=== PATIENT | male | born 1935 | race Caucasian/White ===

== ENCOUNTER 2018-01-28 23:31 | Observation (INO) | payer OTHER, MEDICAID ==
[~2018-01-28] VITALS: Ht 167.6 cm; Wt 110.0 kg
[~2018-01-28 23:31] MED LIST: ASPI-183 PO; CALTCHW5 PO; DIPH25CA PO; DOCU50CA5; FURO40TA PO; KLOR10TA PO; METO1TAB42 PO; MULTTAB67 PO; NORC5TAB PO; OMEGCAP PO; OMEP20TA93 PO; PENT400T PO; SIME1CAP14 PO; SIME1CAP17 PO; SUCR1TAB PO; TAMS0.4C4 PO; [UNRECOGNIZED DRUG - REMARK]
[2018-01-29] VITALS (7 sets, daily range): BP systolic 99–125; BP diastolic 52–62; PULSE 20–89; RESP 18–22; TEMP 97.5–98.7; O2SAT 90–96
--- NOTE | 2018-01-29 00:10 | PD ---
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 According to EMS his takes care of his ADLs and was wiping him and found that was red on the toilet paper. There was no clots patient has had no abdomen pain no history of hemorrhoids no history of GI bleed. Patient has no abdominal pain patient is demented and a poor historian so HPI and ROS is incomplete. He is not hypotensive he is not tachycardic. Initial rolling him to do a rectal exam he starts to lose what looks to be floccular and red fluid that is slowly coming out of his rectum and is very guaiac positive and gross blood it is not clots and his next what looks possibly a mucous substance. PFSH Past Medical History Arthritis: Yes Cancer: Yes (PROSTATE CA. WITH SEEDS) Cardiovascular Problems: Yes ([place]) Cerebrovascular Accident: Yes (RIGHT SIDE DEFICITS) Endocrine: No Gastrointestinal Disorders: Yes (REFLUX) Hypertension: Yes Immune Disorder: No Implanted Vascular Access Dvce: Yes Musculoskeletal: Yes (LEFT HIP REPLACEMENT) Neurologic: No Psychiatric: No Reproductive: No Respiratory: Yes (COPD) Radiation Therapy: Yes Past Surgical History Cardiac Surgery: Yes (CARDIAC CATH, BYPASS X 3) Joint Replacement: Yes (LEFT HIP) Pacemaker: No Other Surgery: Yes Social History Alcohol Use: No Tobacco Use: Yes (3 PPD) Substance Use: No Allergies-Medications (Allergen,Severity, Reaction): Coded Allergies: omeprazole (Verified Allergy, Severe, HIVES, 01/29/18) No Known Allergies (Unverified Allergy, Unknown, 09/03/17) Reported Meds & Prescriptions Reported Meds & Active Scripts Active Ecotrin Low Strength (Aspirin) 81 Mg Tabdr 81 Mg PO DAILY Anusol-Hc Supp (Hydrocortisone Supp) 25 Mg Supp 25 Mg RECTAL BID 14 Days [place] (Hydrocodone-Acetaminophen) 5 Mg-325 Mg Tab 1 Tab PO Q6H PRN Reported Tamsulosin (Tamsulosin HCl) 0.4 Mg Cap 0.4 Mg PO HS Sucralfate 1 Gram Tab 1 Gm PO HS on empty stomach Simethicone 125 Mg Cap 80 Mg PO BID PRN Klor-Con 10 (Potassium Chloride) 10 Meq Tab 10 Meq PO DAILY Pentoxifylline ER (Pentoxifylline) 400 Mg Tab 400 Mg PO DAILY Omeprazole 20 Mg Tab 20 Mg PO DAILY [place]-3 Fish Oil/Vitamin (Fish Oil-Cholecalciferol) 1,000-1,000 Mg Cap 1 Cap PO DAILY Multiple Vitamin 1 Tab 1 Tab PO DAILY Stool Softener (Docusate Sodium) 50 Mg Capsule 1 Cap DAILY Metoprolol Succinate ER 24 HR (Metoprolol Succinate) 25 Mg Tab 12.5 Mg PO HS Metoprolol Succinate ER 24 HR (Metoprolol Succinate) 25 Mg Tab 25 Mg PO DAILY Furosemide 40 Mg Tab 40 Mg PO DAILY Diphenhydramine (Diphenhydramine HCl) 25 Mg Cap 25 Mg PO HS Caltrate 600+D Chew (Calcium Carbonate-Vitamin D Chew) 600-400 Mg-Unit Chew 1 Tab PO DAILY [Unk Shot For Ca] DIRECTED Physical Exam Narrative GENERAL: Patient is awake but is a poor historian he seems to have a communication issue answering in simple 1 or 2 word answers SKIN: Warm and dry. HEAD: Atraumatic. Normocephalic. EYES: Pupils equal and round. No scleral icterus. No injection or drainage. ENT: No nasal bleeding or discharge. Mucous membranes pink and moist. NECK: Trachea midline. No JVD. CARDIOVASCULAR: Regular rate and rhythm. RESPIRATORY: No accessory muscle use. Clear to auscultation. Breath sounds equal bilaterally. GASTROINTESTINAL: Abdomen soft, non-tender, nondistended. Hepatic and splenic margins not palpable. Rectal exam he has fluid that is almost serous like with red coloration and is very guaiac positive on the occult card MUSCULOSKELETAL: Extremities without clubbing, cyanosis, or edema. No obvious deformities. NEUROLOGICAL: Awake and alert. No obvious cranial nerve deficits. Motor grossly within normal limits. Five out of 5 muscle strength in the arms and legs. Normal speech. PSYCHIATRIC: Patient is post CVA with mild aphasia he is answering and correct but 1 or 2 word answers to my questions Data Data Last Documented VS Orders Orders Complete Blood Count With Diff (01/29/18 00:11) Comprehensive Metabolic Panel (01/29/18 00:11) Lipase (01/29/18 00:11) Type And Screen (01/29/18 00:11) Ecg Monitoring (01/29/18 00:11) Iv Access Insert/Monitor (01/29/18 00:11) Oximetry (01/29/18 00:11) Pantoprazole Inj (Protonix Inj) (01/29/18 00:15) Sodium Chloride 0.9% Flush (Ns Flush) (01/29/18 00:15) Famotidine Inj (Pepcid Inj) (01/29/18 00:15) Chest, Single Ap (01/29/18 ) (Hub Use Only)Inp Phy Cons/Ref (01/29/18 ) Ct Abd/Pel W/O Iv Contrast (01/29/18 ) Lorazepam Inj (Ativan Inj) (01/29/18 03:15) Admit Order (Ed Use Only) (01/29/18 04:24) Place In Observation (01/29/18 ) Vital Signs (Adult) HERMES.QSHIFT (01/29/18 04:48) Activity Bed Rest (01/29/18 04:48) Intake + Output HERMES.QSHIFT (01/29/18 04:48) Diet Npo (01/29/18 Breakfast) Sodium Chloride 0.9% Flush (Ns Flush) (01/29/18 05:00) Sodium Chloride 0.9% Flush (Ns Flush) (01/29/18 09:00) Ondansetron Inj (Zofran Inj) (01/29/18 05:00) Hgb & Hct (01/29/18 18:20) Consult Gastroenterology (01/29/18 ) Scd Bilateral/Knee High HERMES.BID (01/29/18 04:48) Waqar Bilateral/Knee High HERMES.QSHIFT (01/29/18 04:48) Albuterol-Ipratropium Neb (Duoneb Neb) (01/29/18 05:00) Fuel Injection Servicer / Telemetry HERMES.Q8H (01/29/18 04:48) Urinalysis - C+S If Indicated (01/29/18 04:52) Labs Laboratory Tests Test 01/29/18 00:20 White Blood Count 8.2 TH/MM3 Red Blood Count 4.17 MIL/MM3 Hemoglobin 12.2 GM/DL Hematocrit 38.0 % Mean Corpuscular Volume 91.0 FL Mean Corpuscular Hemoglobin 29.1 PG Mean Corpuscular Hemoglobin Concent 32.0 % Red Cell Distribution Width 15.2 % Platelet Count 97 TH/MM3 Mean Platelet Volume 10.0 FL Neutrophils (%) (Auto) 66.9 % Lymphocytes (%) (Auto) 21.4 % Monocytes (%) (Auto) 8.4 % Eosinophils (%) (Auto) 2.8 % Basophils (%) (Auto) 0.5 % Neutrophils # (Auto) 5.5 TH/MM3 Lymphocytes # (Auto) 1.7 TH/MM3 Monocytes # (Auto) 0.7 TH/MM3 Eosinophils # (Auto) 0.2 TH/MM3 Basophils # (Auto) 0.0 TH/MM3 CBC Comment AUTO DIFF Differential Comment AUTO DIFF CONFIRMED Platelet Estimate LOW Platelet Morphology Comment ENLARGED Blood Urea Nitrogen 30 MG/DL Creatinine 0.72 MG/DL Random Glucose 104 MG/DL Total Protein 5.8 GM/DL Albumin 2.7 GM/DL Calcium Level 9.1 MG/DL Alkaline Phosphatase 68 U/L Aspartate Amino Transf (AST/SGOT) 16 U/L Alanine Aminotransferase (ALT/SGPT) 14 U/L Total Bilirubin 0.5 MG/DL Sodium Level 145 MEQ/L Potassium Level 4.1 MEQ/L Chloride Level 104 MEQ/L Carbon Dioxide Level 36.1 MEQ/L Anion Gap 5 MEQ/L Estimat Glomerular Filtration Rate 104 ML/MIN Lipase 72 U/L MDM Medical Decision Making Medical Screen Exam Complete: Yes Emergency Medical Condition: Yes Differential Diagnosis rectal bleeding from hemorrhoids vs AV malformation vs colitis , UC or crohns ,other Narrative Course rectal exam shows mucouslike bloody d/c and tenderness then CT shows what appears to be significant rectal sigmoid thickening , possible protitis with sloughing of mucous layer of rectum , ADmit for GI consult eval possible colonscopy Diagnosis Primary Impression: Rectal bleed Additional Impression: Proctitis Admitting Information Admitting Physician Requests: Admit Scripts Aspirin DR (Ecotrin Low Strength) 81 Mg Tabdr 81 MG PO DAILY for Prevent Blood Clot, #30 TAB 0 Refills Prov: Maria Alejandra Koroma PA-C 01/29/18 Hydrocortisone Supp (Anusol-Hc Supp) 25 Mg Supp 25 MG RECTAL BID for rectal bleeding for 14 Days, #28 APPLIC Prov: Maria Alejandra Koroma PA-C 01/29/18 Johnson Dumont MD Jan 29, 2018 00:10
[2018-01-29] MEDS ORDERED: SODIUM CHLORIDE 0.9% FLUSH 10 ML FLUSH IVF PRN (00:15)
[2018-01-29] MEDS ORDERED: FAMOTIDINE 20 MG/2 ML VIAL IV PUSH ONE (00:15)
[2018-01-29] MEDS ORDERED: PANTOPRAZOLE SODIUM 40 MG VIAL IVP ONE (00:15)
[2018-01-29 00:47] LABS: AUTOMATED NEUTROPHIL # 5.5 TH/MM3 (1.8-7.7); BASOPHIL % 0.5 % (0.0-2.0); EOSINOPHIL # 0.2 TH/MM3 (0-0.4); EOSINOPHIL % 2.8 % (0.0-4.0); HEMOGLOBIN 12.2 GM/DL (13.0-17.0); LYMPH % 21.4 % (9.0-44.0); LYMPHOCYTE # 1.7 TH/MM3 (1.0-4.8); MEAN CORPUSCULAR HEMOGLOBIN 29.1 PG (27.0-34.0); MONO % 8.4 % (0.0-8.0); MONOCYTE # 0.7 TH/MM3 (0-0.9); NEUT % 66.9 % (16.0-70.0); PLATELET COUNT 97 TH/MM3 (150-450); RED BLOOD COUNT 4.17 MIL/MM3 (4.50-5.90); RED CELL DISTRIBUTION WIDTH 15.2 % (11.6-17.2); WHITE BLOOD COUNT 8.2 TH/MM3 (4.0-11.0)
[2018-01-29 01:10] LABS: ALBUMIN 2.7 GM/DL (3.4-5.0); ALT (GPT) 14 U/L (12-78); AST (GOT) 16 U/L (15-37); BICARBONATE 36.1 MEQ/L (21.0-32.0); BLOOD UREA NITROGEN 30 MG/DL (7-18); CALCIUM 9.1 MG/DL (8.5-10.1); CHLORIDE 104 MEQ/L (98-107); CREATININE 0.72 MG/DL (0.60-1.30); GLOMERULAR FILTRATION RATE 104 ML/MIN (>89); GLUCOSE,RANDOM 104 MG/DL (74-106); SODIUM (NA) 145 MEQ/L (136-145)
[2018-01-29 01:12] LABS: ALKALINE PHOSPHATASE 68 U/L (45-117); TOTAL BILIRUBIN ADULT 0.5 MG/DL (0.2-1.0); TOTAL PROTEIN 5.8 GM/DL (6.4-8.2)
--- NOTE | 2018-01-29 01:13 | RADRPT ---
EXAM DATE/TIME: 01/29/2018 00:36 [facility] COMPARISON: CHEST SINGLE AP, September 03, 2017, 15:36. INDICATIONS : Short of breath. Vomiting. MEDICAL HISTORY : Myocardial infarction. Carcinoma, prostatic. SURGICAL HISTORY : CABG. Left total hip replacment. ENCOUNTER: Initial ACUITY: 1 day PAIN SCORE: 0/10 LOCATION: Bilateral chest FINDINGS: A single view of the chest demonstrates the lungs to be symmetrically aerated without evidence of mas s, infiltrate or effusion. The cardiomediastinal contours are unremarkable. Previous sternotomy. Mul tiple left rib fractures. CONCLUSION: No acute disease Bam Tanner MD on January 29, 2018 at 1:10 Board Certified Radiologist. This report was verified electronically.
[2018-01-29] MEDS ORDERED: LORazepam 2 MG/ML VIAL IV PUSH ONE (03:15)
--- NOTE | 2018-01-29 03:40 | RADRPT ---
EXAM DATE/TIME: 01/29/2018 03:21 [facility] COMPARISON: No previous studies available for comparison. INDICATIONS : Rectal bleeding. ORAL CONTRAST: No oral contrast ingested. RADIATION DOSE: 17.4 CTDIvol (mGy) MEDICAL HISTORY : Cardiovascular disease. Carcinoma, prostate. Hypertension. SURGICAL HISTORY : None. ENCOUNTER: Initial ACUITY: 1 day PAIN SCALE: 0/10 LOCATION: Bilateral abdomen TECHNIQUE: Volumetric scanning of the abdomen and pelvis was performed. Using automated exposure control and ad justment of the mA and/or kV according to patient size, radiation dose was kept as low as reasonably achievable to obtain optimal diagnostic quality images. DICOM format image data is available electro nically for review and comparison. FINDINGS: LOWER LUNGS: The visualized lower lungs are clear. LIVER: Homogeneous density without lesion. There is no dilation of the biliary tree. Gallbladder surgically absent.. SPLEEN: Normal size without lesion. PANCREAS: Within normal limits. KIDNEYS: Left renal cysts. Nonobstructing stone in the lower pole collecting system of the left kidney. ADRENAL GLANDS: Within normal limits. VASCULAR: There is no aortic aneurysm. BOWEL/MESENTERY: Question wall thickening involving the rectosigmoid. Bowel is otherwise unremarkable. ABDOMINAL WALL: Within normal limits. RETROPERITONEUM: There is no lymphadenopathy. BLADDER: Small diverticular outpouching involving the anterior dome region. REPRODUCTIVE: Prostate fiducials or seen implants INGUINAL: There is no lymphadenopathy or hernia. MUSCULOSKELETAL: Left total hip arthroplasty. Degenerative changes in the spine. CONCLUSION: Question mild wall thickening involving rectosigmoid. Left renal cysts and nonobstructing stone. Distended urinary bladder with dome diverticulum Bam Tanner MD on January 29, 2018 at 3:30 Board Certified Radiologist. This report was verified electronically.
[2018-01-29] MEDS ORDERED: RESP: ALBUTEROL 2.5 MG/IPRATROPIUM 0.5 MG NEB (PRN) NEB ×2 (05:00→05:45)
[2018-01-29] MEDS ORDERED: SODIUM CHLORIDE 0.9% FLUSH 10 ML FLUSH IV FLUSH PRN (05:00)
[2018-01-29] MEDS ORDERED: ONDANSETRON HCL 4 MG/2 ML VIAL IV PUSH PRN (05:00)
[2018-01-29 05:36] LABS: AMORPHOUS SEDIMENT, URINE RARE; BILIRUBIN, URINE NEG (NEG); BLOOD, URINE TRACE (NEG); GLUCOSE,URINE NEG (NEG); HYALINE CAST, URINE 31 /lpf (RARE); KETONE, URINE NEG (NEG); MUCUS URINE MANY /lpf (OCC); NITRITE,URINE NEG (NEG); PH, URINE 5.5 (5.0-8.5); URINE COLOR YELLOW (YELLW/STRAW); URINE LEUKOCYTE ESTERASE NEG (NEG)
--- NOTE | 2018-01-29 05:42 | HHI.HP ---
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 The patient denies any abdominal pain. No fatigue. No nausea/vomiting/diarrhea. No chest pain or shortness of breath. Review of Systems Except as stated in HPI: all other systems reviewed are Neg Past Family Social History Past Medical History COPD Hypertension Hyperlipidemia Prostate cancer with metastatic disease to the liver CAD History of CVA Past Surgical History CABG 4 Right hip replacement Right ankle surgery Bilateral cataract surgery Reported Medications Reported Meds & Active Scripts Active [place] (Hydrocodone-Acetaminophen) 5 Mg-325 Mg Tab 1 Tab PO Q6H PRN Reported Tamsulosin (Tamsulosin HCl) 0.4 Mg Cap 0.4 Mg PO HS Sucralfate 1 Gram Tab 1 Gm PO HS on empty stomach Phazyme Maximum Strength (Simethicone) 250 Mg Cap 180 Mg PO QID PRN Simethicone 125 Mg Cap 80 Mg PO BID PRN Klor-Con 10 (Potassium Chloride) 10 Meq Tab 10 Meq PO DAILY Pentoxifylline ER (Pentoxifylline) 400 Mg Tab 400 Mg PO DAILY Omeprazole 20 Mg Tab 20 Mg PO DAILY [place]-3 Fish Oil/Vitamin (Fish Oil-Cholecalciferol) 1,000-1,000 Mg Cap 1 Cap PO DAILY Multiple Vitamin 1 Tab 1 Tab PO DAILY Stool Softener (Docusate Sodium) 50 Mg Capsule 1 Cap DAILY Metoprolol Succinate ER 24 HR (Metoprolol Succinate) 25 Mg Tab 12.5 Mg PO HS Metoprolol Succinate ER 24 HR (Metoprolol Succinate) 25 Mg Tab 25 Mg PO DAILY Furosemide 40 Mg Tab 40 Mg PO DAILY Diphenhydramine (Diphenhydramine HCl) 25 Mg Cap 25 Mg PO HS Caltrate 600+D Chew (Calcium Carbonate-Vitamin D Chew) 600-400 Mg-Unit Chew 1 Tab PO DAILY Aspirin 325 Mg Tab 325 Mg PO DAILY [Unk Shot For Ca] DIRECTED Allergies: Coded Allergies: omeprazole (Verified Allergy, Severe, HIVES, 01/29/18) No Known Allergies (Unverified Allergy, Unknown, 09/03/17) Family History Father with CAD Social History Remote history of tobacco. Negative for alcohol, illicit drugs Physical Exam Vital Signs Vital Signs Date Time Temp Pulse Resp B/P (MAP) Pulse Ox O2 Delivery O2 Flow Rate FiO2 01/29/18 02:21 89 18 115/56 (75) 95 Nasal Cannula 2.00 01/29/18 00:37 95 Nasal Cannula 2.00 01/28/18 23:45 18 Physical Exam GENERAL: male lying in bed, sleeping SKIN: 3 cm round ulcer with black eschar on the left heel, dressed. Dressing clean/dry/intact. HEAD: Atraumatic. Normocephalic. No temporal or scalp tenderness. EYES: Pupils equal round and reactive. Extraocular motions intact. No scleral icterus. No injection or drainage. ENT: Nose without bleeding, purulent drainage or septal hematoma. Throat without erythema, tonsillar hypertrophy or exudate. Uvula midline. Airway patent. NECK: Trachea midline. No JVD or lymphadenopathy. Supple, nontender, no meningeal signs. CARDIOVASCULAR: Regular rate and rhythm without murmurs, gallops, or rubs. RESPIRATORY: Clear to auscultation. Breath sounds equal bilaterally. No wheezes , rales, or rhonchi. GASTROINTESTINAL: Abdomen soft, non-tender, nondistended. No hepato-splenomegaly , or palpable masses. No guarding. MUSCULOSKELETAL: Extremities without clubbing, cyanosis, or edema. No joint tenderness, effusion, or edema noted. No calf tenderness. NEUROLOGICAL: Awake and alert. Cranial nerves II through XII intact. Motor and sensory grossly within normal limits. Normal speech. Laboratory Laboratory Tests Test 01/29/18 00:20 01/29/18 04:53 White Blood Count 8.2 Red Blood Count 4.17 Hemoglobin 12.2 Hematocrit 38.0 Mean Corpuscular Volume 91.0 Mean Corpuscular Hemoglobin 29.1 Mean Corpuscular Hemoglobin Concent 32.0 Red Cell Distribution Width 15.2 Platelet Count 97 Mean Platelet Volume 10.0 Neutrophils (%) (Auto) 66.9 Lymphocytes (%) (Auto) 21.4 Monocytes (%) (Auto) 8.4 Eosinophils (%) (Auto) 2.8 Basophils (%) (Auto) 0.5 Neutrophils # (Auto) 5.5 Lymphocytes # (Auto) 1.7 Monocytes # (Auto) 0.7 Eosinophils # (Auto) 0.2 Basophils # (Auto) 0.0 CBC Comment AUTO DIFF Differential Comment AUTO DIFF CONFIRMED Platelet Estimate LOW Platelet Morphology Comment ENLARGED Blood Urea Nitrogen 30 Creatinine 0.72 Random Glucose 104 Total Protein 5.8 Albumin 2.7 Calcium Level 9.1 Alkaline Phosphatase 68 Aspartate Amino Transf (AST/SGOT) 16 Alanine Aminotransferase (ALT/SGPT) 14 Total Bilirubin 0.5 Sodium Level 145 Potassium Level 4.1 Chloride Level 104 Carbon Dioxide Level 36.1 Anion Gap 5 Estimat Glomerular Filtration Rate 104 Lipase 72 Result Diagram: 01/29/181901/29/18 002 Caprini VTE Risk Assessment Caprini VTE Risk Assessment: Mod/High Risk (score >= 2) Caprini Risk Assessment Model Point Value = 1 Point Value = 2 Point Value = 3 Point Value = 5 Age 41-60 Minor surgery BMI > 25 kg/m2 Swollen legs Varicose veins or History of unexplained or recurrent spontaneous Oral contraceptives or hormone replacement Sepsis (< 1 month) Serious lung disease, including pneumonia (< 1 month) Abnormal pulmonary function Acute myocardial infarction Congestive heart failure (< 1 month) History of inflammatory bowel disease Medical patient at bed rest Age 61-74 Arthroscopic surgery Major open surgery (> 45 min) Laparoscopic surgery (> 45 min) Malignancy Confined to bed (> 72 hours) Immobilizing plaster cast Central venous access Age >= 75 History of VTE Family history of VTE Factor V Leiden Prothrombin [id number] Lupus anticoagulant Anticardiolipin antibodies Elevated serum homocysteine Heparin-induced thrombocytopenia Other congenital or acquired thrombophilia Stroke (< 1 month) Elective arthroplasty Hip, pelvis, or leg fracture Acute spinal cord injury (< 1 month) Prophylaxis Regimen Total Risk Factor Score Risk Level Prophylaxis Regimen 0-1 Low Early ambulation 2 Moderate Order ONE of the following: *Sequential Compression Device (SCD) *Heparin 5000 units SQ BID 3-4 Higher Order ONE of the following medications: *Heparin 5000 units SQ TID *Enoxaparin/Lovenox 40 mg SQ daily (WT < 150 kg, CrCl > 30 mL/min) *Enoxaparin/Lovenox 30 mg SQ daily (WT < 150 kg, CrCl > 10-29 mL/min) *Enoxaparin/Lovenox 30 mg SQ BID (WT < 150 kg, CrCl > 30 mL/min) AND/OR *Sequential Compression Device (SCD) 5 or more Highest Order ONE of the following medications: *Heparin 5000 units SQ TID (Preferred with Epidurals) *Enoxaparin/Lovenox 40 mg SQ daily (WT < 150 kg, CrCl > 30 mL/min) *Enoxaparin/Lovenox 30 mg SQ daily (WT < 150 kg, CrCl > 10-29 mL/min) *Enoxaparin/Lovenox 30 mg SQ BID (WT < 150 kg, CrCl > 30 mL/min) AND *Sequential Compression Device (SCD) Assessment and Plan Assessment and Plan Assessment/plan: 1. Lower GI bleed CT of the abdomen/pelvis concerning for possible mild wall thickening involving the rectosigmoid colon Gastroenterology consulted, appreciate assistance Serial H&H IV Protonix Transfuse as needed 2. Prostate cancer with metastatic disease to the liver Continue with outpatient care, oncologist is Dr. Zambrano 3. Hypertension/hyperlipidemia/CAD Continue home medications Holding home aspirin 4. History of CVA Physical therapy consulted 5. COPD DuoNeb's when necessary FEN Nothing by mouth Electrolytes: Monitor and replete when necessary NS at 125 cc/hr Holding pharmacologic anticoagulation secondary to active GI bleed Ashlyn Dunn MD Jan 29, 2018 05:41
[2018-01-29] MEDS ORDERED: SODIUM CHLOR 0.9% 1000 ML INJ 1,000 ML IV SCH (05:45)
[2018-01-29] MEDS ORDERED: PANTOPRAZOLE SODIUM 40 MG VIAL IV PUSH SCH (09:00)
[2018-01-29] MEDS ORDERED: SODIUM CHLORIDE 0.9% FLUSH 10 ML FLUSH IV FLUSH SCH (09:00)
[2018-01-29] MEDS ORDERED: METOPROLOL SUCCINATE 25 MG EXTENDED RELEASE TAB PO SCH (09:00)
[2018-01-29] MEDS ORDERED: PENTOXIFYLLINE 400 MG CONTROLLED RELEASE TAB PO SCH (09:00)
[2018-01-29] MEDS ORDERED: FUROSEMIDE 40 MG TAB PO SCH (09:00)
--- NOTE | 2018-01-29 10:00 | PD.CONS ---
HPI History of Present Illness This is a 82 year old male with hx CVA, CAD, prostate ca who presented to ER for blood in his stool. Yesterday he noticed dark blood in his stool, which was watery. Admits black stool. He had radiation for his prostate ca "a couple years" ago. Denies abd pain, n/v, weight loss. HE had colonscopy 14 y ago and is unable to provide further details. Denies being on blood thinners. He is refusing colonoscopy. Poor historian. (Angelika Gilliland) PFSH Past Medical History COPD Hypertension Hyperlipidemia Prostate cancer with metastatic disease to the liver CAD History of CVA Past Surgical History CABG 4 Right hip replacement Right ankle surgery Bilateral cataract surgery (Angelika Gilliland) Coded Allergies: omeprazole (Verified Allergy, Severe, HIVES, 01/29/18) No Known Allergies (Unverified Allergy, Unknown, 09/03/17) Family History Father with CAD Social History Remote history of tobacco. Negative for alcohol, illicit drugs (Angelika Gilliland) Review of Systems Gastrointestinal: COMPLAINS OF: Black stools, Bloody stools, DENIES: Abdominal pain, Nausea, Vomiting otherwise noncontributory (Angelika Gilliland) GI Exam Vitals I&O Vital Signs Date Time Temp Pulse Resp B/P (MAP) Pulse Ox O2 Delivery O2 Flow Rate FiO2 01/29/18 07:46 97.5 72 18 119/52 (74) 94 01/29/18 06:36 98.7 70 22 99/53 (68) 96 01/29/18 02:21 89 18 115/56 (75) 95 Nasal Cannula 2.00 01/29/18 00:37 95 Nasal Cannula 2.00 01/28/18 23:45 18 Imaging Last Impressions Chest X-Ray 01/29/18 0000 Signed Impressions: Service Date/Time: January 00:36 - CONCLUSION: No acute disease Bam Tanner MD Abdomen/Pelvis CT 01/29/18 0000 Signed Impressions: Service Date/Time: January 03:21 - CONCLUSION: Question mild wall thickening involving rectosigmoid. Left renal cysts and nonobstructing stone. Distended urinary bladder with dome diverticulum Bam Tanner MD Laboratory Test 01/29/18 00:20 01/29/18 04:53 White Blood Count 8.2 TH/MM3 Red Blood Count 4.17 MIL/MM3 Hemoglobin 12.2 GM/DL Hematocrit 38.0 % Mean Corpuscular Volume 91.0 FL Mean Corpuscular Hemoglobin 29.1 PG Mean Corpuscular Hemoglobin Concent 32.0 % Red Cell Distribution Width 15.2 % Platelet Count 97 TH/MM3 Mean Platelet Volume 10.0 FL Neutrophils (%) (Auto) 66.9 % Lymphocytes (%) (Auto) 21.4 % Monocytes (%) (Auto) 8.4 % Eosinophils (%) (Auto) 2.8 % Basophils (%) (Auto) 0.5 % Neutrophils # (Auto) 5.5 TH/MM3 Lymphocytes # (Auto) 1.7 TH/MM3 Monocytes # (Auto) 0.7 TH/MM3 Eosinophils # (Auto) 0.2 TH/MM3 Basophils # (Auto) 0.0 TH/MM3 CBC Comment AUTO DIFF Differential Comment AUTO DIFF CONFIRMED Platelet Estimate LOW Platelet Morphology Comment ENLARGED Blood Urea Nitrogen 30 MG/DL Creatinine 0.72 MG/DL Random Glucose 104 MG/DL Total Protein 5.8 GM/DL Albumin 2.7 GM/DL Calcium Level 9.1 MG/DL Alkaline Phosphatase 68 U/L Aspartate Amino Transf (AST/SGOT) 16 U/L Alanine Aminotransferase (ALT/SGPT) 14 U/L Total Bilirubin 0.5 MG/DL Sodium Level 145 MEQ/L Potassium Level 4.1 MEQ/L Chloride Level 104 MEQ/L Carbon Dioxide Level 36.1 MEQ/L Anion Gap 5 MEQ/L Estimat Glomerular Filtration Rate 104 ML/MIN Lipase 72 U/L Urine Color YELLOW Urine Turbidity HAZY Urine pH 5.5 Urine Specific [place] 1.027 Urine Protein TRACE mg/dL Urine Glucose (UA) NEG mg/dL Urine Ketones NEG mg/dL Urine Occult Blood TRACE Urine Nitrite NEG Urine Bilirubin NEG Urine Urobilinogen 2.0 MG/DL Urine Leukocyte Esterase NEG Urine RBC 15 /hpf Urine WBC 3 /hpf Urine Amorphous Sediment RARE Urine Hyaline Casts 31 /lpf Urine Mucus MANY /lpf Microscopic Urinalysis Comment CULT NOT INDICATED Physical Examination HEENT: normocephalic; atraumatic; no jaundice. CHEST: CTA CARDIAC: RRR ABDOMEN: Soft, nondistended, nontender; no hepatosplenomegaly; bowel sounds are present in all four quadrants. EXTREMITIES: No clubbing, cyanosis, + BLE edema. SKIN: Normal; no rash; no jaundice. 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 dark blood and watery stool.CT showed rectosigmoid thickening could be radiation proctitis? hx prostate ca s/p radiation. refusing procedures. - anemia - mild, hgb 12.2 normocytic - thrombocytopenia - plt 97 PLAN - refusing procedures - monitor HH - transfuse if needed - supportive care pt seen by myself and Dr Caicedo and this note is on his behalf (Angelika Gilliland) Physician Comments Seen and examined with DANIEL, no active bleeding reported. Refusing sigmoidoscopy or colonoscopy. CT reviewed, suggestive of proctitis. Hydrocortisone supp 25mg [place] bid. GI will sign off, reconsult as needed. Thank you (Kit Caicedo MD) Angelika Gilliland Jan 29, 2018 10:00 Kit Caicedo MD Jan 29, 2018 12:39
--- NOTE | 2018-01-29 13:34 | PD.WCN.NOT ---
Wound Consult Description: Received consult from wound management of L heel Communicated with: RN Tiana Pascual pod and Doctor Elmer Recommendation: 1.Please Leave L heel stable eschar open to air and Apply skin prep BID. 2. Apply heel raiser boots to offload pressure from heel areas. 3. Cleanse wound to L second toe with normal saline and pat dry 4. Apply Maxorb II (calcium alginate) to L second toe wound bed. 5. Secure dressing with rolled gauze and tape. Additional Information: Patient was seen in B pod for L heel ulcer around 1230. Patient is laying in bed with Heel floating with towel. Removed Coban, stockinette, rolled gauze, hydrocolloid and oil emulsion gauze in place to reveal 100% stable black eschar to L heel. Periwound is noted with dry hyperkeratotic skin. Cleansed wound with normal saline and dried thoroughly.Eschar to wound is dry and non draining.Wound measures 2.7cm x 3cm x eschar. Left stable eschar open to air and sprayed with Cavilon skin barrier film (skin prep). Removed dressing to L second toe to reveal open wound. Wound measures 0.5cm x 0.5cm x ~0.2cm. Wound bed presents with 80% yellow exudate and ~20% pink tissue. Wound drainage is scant and serous, without odor. Cleansed wound with normal saline and patted dry. Applied small piece of Maxorb II just to wound bed and secured with rolled gauze and tape. Tiffany Bernard [facility] Jan 29, 2018 13:34
--- NOTE | 2018-01-29 14:42 | HHI.FF ---
Face to Face Verification Diagnosis: (1) Open wound of left heel (2) History of CVA (cerebrovascular accident) (3) CAD (coronary artery disease) (4) Prostate CA (5) COPD (chronic obstructive pulmonary disease) (6) HTN (hypertension) (7) HLD (hyperlipidemia) (8) Rectal bleed (9) Proctitis Physical Therapy Order: Evaluate and Treat, Improve ambulation, Strength and gait training Occupational Therapy Order: Evaluate and Treat, Improve ADL, Gross motor coordination Home Health Nursing Order: Medical education Signs/symptoms of disease process Wound care and dressing changes Nursing assessment with vital signs Instructions: 1.Please Leave L heel stable eschar open to air and Apply skin prep BID. 2. Apply heel raiser boots to offload pressure from heel areas. 3. Cleanse wound to L second toe with normal saline and pat dry 4. Apply Maxorb II (calcium alginate) to L second toe wound bed. 5. Secure dressing with rolled gauze and tape. 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 My clinical findings support the need for the requested home health care services because: Ltd mobility - disease progression Patient has SOB Deconditioned w/ increased weakness Med compliance is questionable Limited ability to care for self I certify that my clinical findings support that this patient is homebound because: Impaired cognitive ability/safety Hx COPD- exertion dyspnea/weakness Unsteady gait/balance Unsafe to leave home unassisted Unable to use public transportation Maria Alejandra Koroma PA-C Jan 29, 2018 14:42
[2018-01-29] MEDS ORDERED: ANUS25SU RECTAL (14:46)
[2018-01-29] MEDS ORDERED: ASPI-147 PO (14:46)
[2018-01-29] MEDS ORDERED: HYDROCORTISONE ACETATE 25 MG SUPP RECTAL SCH (15:00)
[2018-01-29 16:04] LABS: HEMATOCRIT 36.1 % (39.0-51.0); HEMOGLOBIN 11.7 GM/DL (13.0-17.0)
[2018-01-29 20:03] LABS: HEMATOCRIT 35.7 % (39.0-51.0); HEMOGLOBIN 11.6 GM/DL (13.0-17.0)
[2018-01-29] MEDS ORDERED: SUCRALFATE 1 GM TAB PO SCH (21:00)
[2018-01-29] MEDS ORDERED: TAMSULOSIN HCL 0.4 MG CAP PO SCH (21:00)
[2018-01-29] MEDS ORDERED: diphenhydrAMINE HCL 25 MG CAP PO SCH (21:00)
== END 2018-01-29 20:40 | disposition home or self-care (01) ==
LOC: NEPC 23:31 → NEDA 01-29 04:26 → UNDOADMIN 01-29 04:26 → NEDA 01-29 04:52 → INTOOBSV 01-29 04:52 → NEDA 01-29 06:27 → NEPGCP 01-29 14:07
PROVIDERS: ADMIT Internal Medicine; ATTEND Internal Medicine
DX: K92.2 Gastrointestinal hemorrhage, unspecified (principal); D69.6 Thrombocytopenia, unspecified; D64.9 Anemia, unspecified; L97.429 Non-pressure chronic ulcer of left heel and midfoot with unspecified severity; I25.10 Atherosclerotic heart disease of native coronary artery without angina pectoris; I10 Essential (primary) hypertension; E78.5 Hyperlipidemia, unspecified; J44.9 Chronic obstructive pulmonary disease, unspecified; F02.80 Dementia in other diseases classified elsewhere, unspecified severity, without behavioral disturbance, psychotic disturbance, mood disturbance, and anxiety; K21.9 Gastro-esophageal reflux disease without esophagitis; Q61.02 Congenital multiple renal cysts; N32.3 Diverticulum of bladder; N32.89 Other specified disorders of bladder; N20.0 Calculus of kidney; M19.90 Unspecified osteoarthritis, unspecified site; F17.200 Nicotine dependence, unspecified, uncomplicated; Z85.46 Personal history of malignant neoplasm of prostate; Z92.3 Personal history of irradiation; Z86.73 Personal history of transient ischemic attack (TIA), and cerebral infarction without residual deficits; Z95.1 Presence of aortocoronary bypass graft; Z79.899 Other long term (current) drug therapy; Z79.82 Long term (current) use of aspirin
CPT/HCPCS: 71045; 74176; 80053; 81001; 83690; 85014; 85018; 85025; 86850; 86900; 86901; 96361; 96374; 96375; 96376; 97162; 99285; C9113; G0378; G8987; G8988; J2060; J7030

== ENCOUNTER 2018-10-14 03:12 | Inpatient (IN) ==
--- NOTE | 2018-10-14 03:57 | ED ---
HPI General Chief complaint: Fall Stated complaint: gall Time Seen by Provider: 10/14/18 03:24 Source: patient Limitations: no limitations History of Present Illness HPI narrative: The patient is an 83 year old male who presents to the [facility] emergency department with a history of reportedly sliding out of his recliner prior to arrival. He called out to his who came to assist him when this occurred. She reports that she was not able to pick him up off the floor. When ambulance services arrived the patient was noted to be lying on his right side. He was complaining of left hip pain and right shoulder pain. The patient also reports that he hit his left ankle which has chronic pain related to a prior fracture. According to the patient's at the bedside, the patient is not ambulatory. He has not been ambulatory since last year when he had a left ankle fracture. The patient has a chronic wound involving that left heel that is currently managed by wound care. The patient is not on any anticoagulation other than a low-dose aspirin daily. According to the patient' s the patient has not been taking his Lasix since Friday as he was concerned that he was urinating too frequently. His reports that he has been experiencing increasing lower extremity edema worse on the right leg compared to the left. The patient denies having any loss of consciousness. He denies having any new numbness or tingling to his extremities, or weakness of his extremities. The patient is chronically on supplemental oxygen at 2 L. During transport while the patient was lying flat he did desaturate and require an additional 2 L. The patient on arrival is saturating 99-100% on 4 L. The patient denies having any chest pain, chest pressure, or shortness of breath. On review of systems otherwise, he denies having any recent fevers, cough, congestion, neck pain, abdominal pain, vomiting, diarrhea, urinary symptoms, or other neurologic symptoms. Related Data Home Medications Medication Instructions Recorded Confirmed calcium carbonate [Calcium 500] 500 mg PO BID 09/09/18 10/14/18 cholecalciferol (vitamin D3) 1,000 unit PO DAILY 09/09/18 10/14/18 [Vitamin D3] omeprazole 20 mg PO BID 09/09/18 10/14/18 pentoxifylline 400 mg PO TID 09/09/18 10/14/18 tamsulosin [Flomax] 0.4 mg PO DAILY 09/09/18 10/14/18 vitamin E 1,000 unit PO DAILY 09/09/18 10/14/18 aspirin [Aspir-81] 81 mg PO DAILY 10/14/18 10/14/18 escitalopram oxalate [Lexapro] 10 mg PO DAILY 10/14/18 10/14/18 furosemide [Lasix] 40 mg PO DAILY 10/14/18 10/14/18 metoprolol succinate 25 mg PO BID 10/14/18 10/14/18 potassium chloride 10 meq PO BID 10/14/18 10/14/18 Allergies Allergy/AdvReac Type Severity Reaction Status Date / Time lansoprazole [From Prevacid] AdvReac Rash Verified 10/14/18 03:48 Review of Systems ROS: all other systems reviewed are negative PMFSH History History Provided By: Family Member Medical History Medical History BPH (benign prostatic hyperplasia) (Acute) CHF (congestive heart failure) (Acute) COPD (chronic obstructive pulmonary disease) (Acute) Depression (Acute) HTN (hypertension) (Acute) Liver cancer (Acute) Prostate CA (Acute) Weakness (Acute) Surgical History Surgical History History of hip replacement (Acute) Hx of CABG (Acute) Hx of cholecystectomy (Acute) Social History Social History Substance History: No History of Abuse Second Hand Smoke Exposure: No Smoking Status: Former smoker Tobacco Type: Cigarettes How Often Do You Have a Drink Containing Alcohol: Monthly or less Recent Travel in [facility] within the Last 8 Weeks: No Recent Out of Country Travel within the Last 8 Weeks: No Exam Const General: cooperative, no acute distress and well developed Nutritional Appearance: well nourished Orientation: alert and awake [facility] Head: normocephalic and atraumatic Nose: no nasal discharge and no epistaxis Mouth: moist mucous membranes Throat: posterior oropharynx normal and uvula midline Eyes Sclera: normal sclerae Pupils: PERRL Neck Neck: no meningeal signs, trachea midline and no JVD Resp Effort & Inspection: no use of accessory muscles Auscultation: clear to auscultation bilaterally Cardio Rate: regular rate Rhythm: regular rhythm Heart Sounds: no murmurs GI Inspection: non-distended Palpation: soft, no hepatosplenomegaly and nontender Back/Spine/Pelvis Back: no CVA tenderness Cervical Spine: No cervical spinal tenderness Thoracic/Lumbar Spine: No thoracic spinal tenderness and No lumbar spinal tenderness Skin General: dry skin (warm) Neuro General: alert, awake and oriented x3 Speech: speech normal Motor: no movement abnormalities noted and other (Strength is 5/5 in bilateral upper extremities, strength is 4/5 in bilateral lower extremities with a history of lower extremity weakness at baseline.) Extrem General: no clubbing, no cyanosis and edema (Worse in the right leg compared to the left. The patient has heel cushions in place for his heels. The patient has a bandage in place over the left foot that was gently removed. The patient has a pressure ulcer over the heel that appears to be healing well without any signs of infection. The patient's right leg is edematous compared to the left. The patient has trace pedal edema of the left, 1+ on the right. No calf tenderness.) Laterality: bilaterally Right upper extremity: shoulder/upper arm (Patient has decreased range of motion to the right shoulder at baseline according to the patient's .) Left upper extremity: shoulder/upper arm (Decreased range of motion to the left shoulder reportedly related to a prior history of this. No other decreased range of motion or new pain.) Psych Mood: congruent mood Affect: normal affect Judgment: judgment good Course Initial Documented Vital Signs Temperature 98.1 F 10/14/18 03:33 Pulse Rate 63 10/14/18 03:33 Respiratory Rate 18 10/14/18 03:33 Blood Pressure 147/64 H 10/14/18 03:33 Pulse Oximetry 98 10/14/18 03:33 Last Documented Vital Signs Temperature 98.1 F 10/14/18 03:33 Pulse Rate 62 10/14/18 03:57 Respiratory Rate 18 10/14/18 03:33 Blood Pressure 147/64 H 10/14/18 03:33 Pulse Oximetry 97 10/14/18 03:57 Medical Decision Making MDM Narrative Medical decision making narrative: During the course of the patient's emergency department visit, the patient's history, examination, and differential diagnosis were reviewed with the patient. The patient was placed on a library monitor with oximetry and frequent blood pressure monitoring. The patient had IV access obtained and blood work sent for analysis. A diagnostic evaluation was started regarding the patient's fall. Once the patient was settled into the bed and is stable position, he reported having no pain. The patient was continued on supplemental oxygen. The patient's diagnostic studies are remarkable for a white count of 3.8, Hemoglobin 12.4, platelets 94 in a patient with a history of thrombocytopenia, monocytosis of 8.3, PT 10.6, PTT 32.4, chemistry is remarkable for a CO2 of 43.6 in a patient with a history of COPD with similarly elevated CO2 in the past , BUN 31, creatinine 0.57, glucose 107, calcium 8.4, cardiac enzymes within normal limits, BNP is 189, lipase within normal limits. The patient had a chest x-ray done that showed diminished lung volumes with bibasilar atelectasis , pelvis x-ray revealed no acute abnormality. Left foot x-ray revealed lucencies in the distal tibia that appear to be related to new fractures just distal to the old fracture sites, diffuse soft tissue swelling, extensive arthropathy and fusion of the midfoot and hindfoot. An ultrasound of the right lower extremity reveals no evidence of DVT. CT scan of the brain shows an old left-sided infarct, no acute abnormality. CT scan of the C-spine shows minimal retrolisthesis of C3 on C4, advanced multilevel degenerative changes, no fracture noted. Minimal lucencies at C2 of uncertain etiology. The patient will be admitted to the hospital regarding his new ankle fracture. The patient will be placed in a long posterior splint. The patient's case including history, pertinent physical examination findings, and laboratory studies were discussed with Dr. Dunn. It was agreed that the patient would be admitted to the hospitalist service. The patient's results were discussed with the patient, including the plan of care. I explained that further testing and/ or monitoring is indicated based on the patient's history, examination, and/ or laboratory findings. Therefore, I recommended admission for additional evaluation. The patient expressed understanding and was agreeable with this plan. The patient was admitted to the hospital in guarded condition and sent to a bed under the care of the [facility] service. Medical Screen Exam Complete: Yes Emergency Medical Condition: Yes Differential Diagnosis Differential Diagnosis: Intracranial trauma, versus cervical spine trauma, versus left tib-fib trauma, versus foot fracture, versus contusion, versus intrathoracic trauma, versus pelvis trauma Medical Records Medical records reviewed: Yes I reviewed the patient's medical records. Lab Data Lab results reviewed: Yes I reviewed the patient's lab results. Result diagrams: 10/14/18 03:52 10/14/18 03:52 Lab Results 10/14/18 10/14/18 10/14/18 Range/Units 03:52 03:52 03:52 WBC 3.8 L (4.0-11.0) th/mm3 RBC 4.16 L (4.50-5.90) mil/mm3 Hgb 12.4 L (13.0-17.0) gm/dL Hct 38.2 L (39.0-51.0) % MCV 91.8 (80.0-100.0) fL MCH 29.8 (27.0-34.0) pg MCHC 32.4 (32.0-36.0) % RDW 14.5 (11.6-17.2) % Plt Count 94 L (150-450) th/mm3 MPV 9.3 (7.0-11.0) fL Prelim Diff (Auto) Slide review pending Neut % (Auto) 51.7 (16.0-70.0) % Lymph % (Auto) 34.6 (9.0-44.0) % [place] % (Auto) 8.3 H (0.0-8.0) % Eos % (Auto) 4.8 H (0.0-4.0) % Baso % (Auto) 0.6 (0.0-2.0) % Neut # (Auto) 2.0 (1.8-7.7) th/mm3 Lymph # (Auto) 1.3 (1.0-4.8) th/mm3 [place] # (Auto) 0.3 (0.0-0.9) th/mm3 Eos # (Auto) 0.2 (0.0-0.4) th/mm3 Baso # (Auto) 0.0 (0.0-0.2) th/mm3 WBC Differential . Diff Scan Auto diff confirmed Differential Comment . Platelet Estimate Normal (Normal) Platelet Morphology Normal (Normal) Stomatocytes 1+ H (None) PT 10.6 (9.8-11.6) sec INR 1.0 Ratio APTT 32.4 H (23.4-31.7) sec Sodium 145 (136-145) meq/L Potassium 4.2 (3.5-5.1) meq/L Chloride 99 (98-107) meq/L Carbon Dioxide 43.6 H (21.0-32.0) meq/L Anion Gap 2 L (5-15) meq/L BUN 31 H (7-18) mg/dL Creatinine 0.57 L (0.60-1.30) mg/dL Estimated GFR Greater than 89 (>89) mL/min Random Glucose 107 H (74-106) mg/dL Calcium 8.4 L (8.5-10.1) mg/dL Magnesium 2.0 (1.5-2.5) mg/dL Total Bilirubin 0.3 (0.2-1.0) mg/dL AST 17 (15-37) U/L ALT 13 (12-78) U/L Alkaline Phosphatase 75 (45-117) U/L Total Creatine Kinase 37 L (39-308) U/L Troponin I Less than 0.02 L (0.02-0.05) ng/mL B-Natriuretic Peptide (0-100) pg/mL Total Protein 5.7 L (6.4-8.2) g/dL Albumin 2.8 L (3.4-5.0) g/dL Lipase 92 (73-393) U/L 10/14/18 Range/Units 03:52 WBC (4.0-11.0) th/mm3 RBC (4.50-5.90) mil/mm3 Hgb (13.0-17.0) gm/dL Hct (39.0-51.0) % MCV (80.0-100.0) fL MCH (27.0-34.0) pg MCHC (32.0-36.0) % RDW (11.6-17.2) % Plt Count (150-450) th/mm3 MPV (7.0-11.0) fL Prelim Diff (Auto) Neut % (Auto) (16.0-70.0) % Lymph % (Auto) (9.0-44.0) % [place] % (Auto) (0.0-8.0) % Eos % (Auto) (0.0-4.0) % Baso % (Auto) (0.0-2.0) % Neut # (Auto) (1.8-7.7) th/mm3 Lymph # (Auto) (1.0-4.8) th/mm3 [place] # (Auto) (0.0-0.9) th/mm3 Eos # (Auto) (0.0-0.4) th/mm3 Baso # (Auto) (0.0-0.2) th/mm3 WBC Differential Diff Scan Differential Comment Platelet Estimate (Normal) Platelet Morphology (Normal) Stomatocytes (None) PT (9.8-11.6) sec INR Ratio APTT (23.4-31.7) sec Sodium (136-145) meq/L Potassium (3.5-5.1) meq/L Chloride (98-107) meq/L Carbon Dioxide (21.0-32.0) meq/L Anion Gap (5-15) meq/L BUN (7-18) mg/dL Creatinine (0.60-1.30) mg/dL Estimated GFR (>89) mL/min Random Glucose (74-106) mg/dL Calcium (8.5-10.1) mg/dL Magnesium (1.5-2.5) mg/dL Total Bilirubin (0.2-1.0) mg/dL AST (15-37) U/L ALT (12-78) U/L Alkaline Phosphatase (45-117) U/L Total Creatine Kinase (39-308) U/L Troponin I (0.02-0.05) ng/mL B-Natriuretic Peptide 189 H (0-100) pg/mL Total Protein (6.4-8.2) g/dL Albumin (3.4-5.0) g/dL Lipase (73-393) U/L Imaging Data Radiologist's impression: Cervical Spine CT 10/14/18 03:48 CONCLUSION: 1. Minimal retrolisthesis C3 on 4. 2. Advanced multilevel degenerative changes. 3. Minimal lucencies at C2 uncertain etiology. 4. No fracture. Chest X-Ray 10/14/18 03:48 CONCLUSION: Diminished lung volumes with bibasilar atelectasis. Head CT 10/14/18 03:48 CONCLUSION: 1. 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 2. No acute intracranial abnormality. . Pelvis X-Ray 10/14/18 03:48 CONCLUSION: No acute fracture. Venous Doppler Study 10/14/18 03:48 CONCLUSION: 1. The study is negative for lower extremity deep venous thrombosis. Foot X-Ray 10/14/18 04:00 CONCLUSION: 1. Lucencies in the distal tibia appears to be related to new fracture just distal to the old fracture sites. 2. Diffuse soft tissue swelling. 3. Extensive arthropathy and fusion of the midfoot and hindfoot. ECG Data Attestation: I personally reviewed and interpreted this ECG as follows: Interpretation: The patient had an EKG done on arrival. The patient's EKG reveals atrial fibrillation of heart rate of 70, and intraventricular conduction delay with QRS duration of 150 ms, QTC [address] segment elevation. T waves are inverted in V1. Discharge Plan Discharge Disposition Patient Disposition: ED Admit(ED Internal Use Only) Discharge Order Discharge Orders: ED Use Only Admit Order (Routine); Ordered 10/14/18 Ordered By: Arabella Azul Discharge Details Diagnosis: Fracture of tibia and fibula Physicians Team ED Provider: Arabella Azul Primary Care Provider: Ivelisse Grijalva Attending Provider: Michelle Thompson Other Providers: Lan Galindo ; Imtiaz Little ; [employer] Status ED Status: Admitted Patient
[2018-10-14 04:18] LABS: Alanine Aminotransferase 13 U/L (12-78); Albumin 2.8 g/dL (3.4-5.0); Anion Gap 2 meq/L (5-15); Aspartate Aminotransferase 17 U/L (15-37); Baso % (Auto) 0.6 % (0.0-2.0); Blood Urea Nitrogen 31 mg/dL (7-18); Calcium 8.4 mg/dL (8.5-10.1); Carbon Dioxide 43.6 meq/L (21.0-32.0); Chloride 99 meq/L (98-107); Eos # (Auto) 0.2 th/mm3 (0.0-0.4); Eos % (Auto) 4.8 % (0.0-4.0); Glomerular Filtration Rate Greater Than 89 mL/min (>89); Glucose,Random 107 mg/dL (74-106); Hematocrit 38.2 % (39.0-51.0); Hemoglobin 12.4 gm/dL (13.0-17.0); Lipase 92 U/L (73-393); Lymph # (Auto) 1.3 th/mm3 (1.0-4.8); Lymph % (Auto) 34.6 % (9.0-44.0); Mean Corpuscular HGB Conc 32.4 % (32.0-36.0); Mean Corpuscular Hemoglobin 29.8 pg (27.0-34.0); Mean Corpuscular Volume 91.8 fL (80.0-100.0); Mean Platelet Volume 9.3 fL (7.0-11.0); Mono # (Auto) 0.3 th/mm3 (0.0-0.9); Mono % (Auto) 8.3 % (0.0-8.0); Neut % (Auto) 51.7 % (16.0-70.0); Platelet Count 94 th/mm3 (150-450); Potassium 4.2 meq/L (3.5-5.1); Red Blood Count 4.16 mil/mm3 (4.50-5.90); Red Cell Distribution Width 14.5 % (11.6-17.2); Sodium 145 meq/L (136-145); White Blood Count 3.8 th/mm3 (4.0-11.0)
[2018-10-14 04:19] LABS: Activated Partial Thrombo Time 32.4 sec (23.4-31.7); Prothrombin Time 10.6 sec (9.8-11.6)
[2018-10-14 04:22] LABS: Alkaline Phosphatase 75 U/L (45-117); Total Protein 5.7 g/dL (6.4-8.2)
[2018-10-14 04:23] LABS: Creatine Kinase 37 U/L (39-308)
--- NOTE | 2018-10-14 04:30 | XR ---
EXAM DATE: 10/14/2018 4:26 AM EST AGE/SEX: 83 years / Male INDICATIONS: Trauma. CLINICAL DATA: This is the patient's initial encounter. Patient reports that signs and symptoms have been present for 1 day and indicates a pain score of Nonresponsive. MEDICAL/SURGICAL HISTORY: . Myocardial infarction. Carcinoma, prostatic. Carcinoma, lung. Carci noma, gallbladder. Pressure wounds. Dementia. . CABG. Left total hip replacement. [place] [facility] [place]AP&LAT 2/3VWS[place] W AP PELVIS, 09/03/2017. . FINDINGS: Examination of the pelvis demonstrates no evidence of fracture or dislocation. Left hip arthroplasty is unchanged. Femoral component intact. Mild osteoarthritis right hip. Prostate seeds are seen. Degen erative changes lower lumbar spine. CONCLUSION: No acute fracture. Electronically signed by: Hadley Courtney MD Board Certified Radiologist 10/14/2018 4:28 AM EST
--- NOTE | 2018-10-14 04:34 | XR ---
EXAM DATE: 10/14/2018 4:28 AM EST AGE/SEX: 83 years / Male INDICATIONS: Trauma. CLINICAL DATA: This is the patient's initial encounter. Patient reports that signs and symptoms have been present for 1 day and indicates a pain score of Nonresponsive. MEDICAL/SURGICAL HISTORY: . Myocardial infarction. Carcinoma, prostatic. Carcinoma, lung. Carci noma, gallbladder. Pressure wounds. Dementia. . CABG. Left total hip replacement [place] [facility] [place] ([id number]), 09/03/2017. [facility] [place]TE ([id number]), 1 11/03/2016. . FINDINGS: Views left foot are obtained. Diffuse soft tissue swelling. Arthritic changes of the first metatarsal phalangeal joint. Old fractures of the distal tibia and fibula however there is minimal lucency dist al to the old fracture sites. Extensive arthropathy of the midfoot and hindfoot with fusion of many o f the joints. There is flattening of the talus. Vascular calcifications. Osteopenia. No definite frac ture CONCLUSION: 1. Lucencies in the distal tibia appears to be related to new fracture just distal to the old fractu re sites. 2. Diffuse soft tissue swelling. 3. Extensive arthropathy and fusion of the midfoot and hindfoot. Electronically signed by: Hadley Courtney MD Board Certified Radiologist 10/14/2018 4:33 AM EST
--- NOTE | 2018-10-14 04:35 | XR ---
EXAM DATE: 10/14/2018 4:24 AM EST AGE/SEX: 83 years / Male INDICATIONS: Chest pain. CLINICAL DATA: This is the patient's initial encounter. Patient reports that signs and symptoms have been present for 1 day and indicates a pain score of Nonresponsive. MEDICAL/SURGICAL HISTORY: . Myocardial infarction. Carcinoma, prostatic. Carcinoma, lung. Carci noma, gallbladder. Pressure wounds. Dementia. . CABG. Left total hip replacement. [place] [facility] [place]. . FINDINGS: A single AP view of the chest demonstrates diminished lung volumes with bibasilar densities likely at electasis. Status post median sternotomy CABG.. The cardiomediastinal contours are unremarkable. Mul tiple old left-sided rib fractures. CONCLUSION: Diminished lung volumes with bibasilar atelectasis. Electronically signed by: Hadley Courtney MD Board Certified Radiologist 10/14/2018 4:34 AM EST
--- NOTE | 2018-10-14 04:37 | CT ---
EXAM DATE: 10/14/2018 4:30 AM EST AGE/SEX: 83 years / Male INDICATIONS: Trauma. Fall. CLINICAL DATA: This is the patient's initial encounter. Patient reports that signs and symptoms have been present for 1 day and indicates a pain score of 0/10. MEDICAL/SURGICAL HISTORY: Cardiovascular disease. Hypertension. Chronic obstructive pulmonary disease. Prostate cancer CABG. Cholecystectomy. RADIATION DOSE: 30.00 CTDI (mGy) ; Patient body habitus COMPARISON: No prior exams available for comparison. TECHNIQUE: Contiguous axial images were obtained using helical multirow detector technique. The vol umetric data was post-processed with multiplanar reconstruction in oblique axial, sagittal, and coron al planes. Using automated exposure control and adjustment of the mA and/or kV according to patient s ize, radiation dose was kept as low as reasonably achievable to obtain optimal diagnostic quality shyann ges. DICOM format image data is available electronically for review and comparison. FINDINGS: Vertebrae: Normal vertebral body height. Extensive degenerative disc disease with reactive endplate sclerosis at C3-4. Advanced multilevel degenerative changes. No fracture. There are lucencies at C2 Alignment: Minimal retrolisthesis C3 on 4.. C2-3: The bony spinal canal is normal in size. No evidence of disc bulge or herniation. The neural foramina are bilaterally patent. C3-4: The bony spinal canal is normal in size. No evidence of disc bulge or herniation. The neural foramina are bilaterally patent. C4-5: The bony spinal canal is normal in size. No evidence of disc bulge or herniation. The neural foramina are bilaterally patent. C5-6: The bony spinal canal is normal in size. No evidence of disc bulge or herniation. The neural foramina are bilaterally patent. C6-7: The bony spinal canal is normal in size. No evidence of disc bulge or herniation. The neural foramina are bilaterally patent. C7-T1: The bony spinal canal is normal in size. No evidence of disc bulge or herniation. The neura l foramina are bilaterally patent. CONCLUSION: 1. Minimal retrolisthesis C3 on 4. 2. Advanced multilevel degenerative changes. 3. Minimal lucencies at C2 uncertain etiology. 4. No fracture. Electronically signed by: Hadley Courtney MD Board Certified Radiologist 10/14/2018 4:36 AM EST
--- NOTE | 2018-10-14 04:40 | CT ---
EXAM DATE: 10/14/2018 4:28 AM EST AGE/SEX: 83 years / Male INDICATIONS: Trauma. Fall. CLINICAL DATA: This is the patient's initial encounter. Patient reports that signs and symptoms have been present for 1 day and indicates a pain score of 0/10. MEDICAL/SURGICAL HISTORY: Cardiovascular disease. Hypertension. Chronic obstructive pulmonary dis ease. Prostate cancer CABG. Cholecystectomy. RADIATION DOSE: 66.34 CTDI (mGy) COMPARISON: [facility] [place], CT HEAD W/O CONTRAST, 09/09/2018. [facility] [place], CT CERVICAL SPINE W/O CONTRAST, 10/14. . TECHNIQUE: CT of the head without contrast. Using automated exposure control and adjustment of the mA and/or kV according to patient size, radiation dose was kept as low as reasonably achievable to ob tain optimal diagnostic quality images. DICOM format image data is available electronically for revi ew and comparison. FINDINGS: Cerebrum: Old infarct along the left sylvian fissure/parietal lobe, unchanged. The ventricles are nor mal for age. No evidence of midline shift, mass lesion, hemorrhage or acute infarction. No extraaxi al fluid collections are seen. Posterior Fossa: The cerebellum and brainstem are intact. The 4th ventricle is midline. The cerebe llopontine angle is unremarkable. Extracranial: The visualized portion of the orbits is intact. Skull: The calvaria is intact. No evidence of skull fracture. CONCLUSION: 1. 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 2. No acute intracranial abnormality. . Electronically signed by: Hadley Courtney MD Board Certified Radiologist 10/14/2018 4:39 AM EST
--- NOTE | 2018-10-14 05:00 | US ---
EXAM DATE: 10/14/2018 4:42 AM EST AGE/SEX: 83 years / Male INDICATIONS: Thrombosis. CLINICAL DATA: This is the patient's initial encounter. Patient reports that signs and symptoms have been present for 1 day and indicates a pain score of 0/10. MEDICAL/SURGICAL HISTORY: . Cardiovascular disease. Carcinoma, prostate. Hypertension. CHF. H [place]. Liver cancer. . Hip replacement; right. CABG. Cholecystectomy. COMPARISON: No prior exams available for comparison. TECHNIQUE: Venous ultrasound of both lower extremities was performed from the inguinal ligament to t he proximal calf. Real-time, color Doppler and spectral tracing, compression and augmentation techni ques were used. FINDINGS: Normal compression of the deep venous system from the inguinal region to the proximal calf . No echogenic clot is seen. Normal response of the venous system to augmentation and respiration. CONCLUSION: 1. The study is negative for lower extremity deep venous thrombosis. Electronically signed by: Hadley Courtney MD Board Certified Radiologist 10/14/2018 4:58 AM EST
[2018-10-14 05:21] LABS: Platelet Estimate Normal (Normal); Platelet Morphology Normal (Normal)
[2018-10-14 05:22] LABS: Stomatocytes 1+
[2018-10-14] MEDS ORDERED: Bisacodyl 10 MG Supp RECTAL PRN (05:53)
[2018-10-14] MEDS ORDERED: Acetaminophen 325 MG Tablet PO PRN (05:53)
--- NOTE | 2018-10-14 07:02 | XR ---
EXAM DATE: 10/14/2018 6:47 AM EST AGE/SEX: 83 years / Male INDICATIONS: Left ankle pain. CLINICAL DATA: This is the patient's initial encounter. Patient reports that signs and symptoms have been present for 1 day and indicates a pain score of Nonresponsive. MEDICAL/SURGICAL HISTORY: . Myocardial infarction. Carcinoma, prostatic. Carcinoma, lung. Carci noma, gallbladder. Pressure wounds. Dementia. . CABG. Left total hip replacement COMPARISON: [facility], FOOT COMPLETE LEFT 3V, 10/14/2018. . FINDINGS: Bones are diffusely osteoporotic with old fracture of the distal tibia and fibula with minimal angula tion. Extensive digital artery calcifications are noted. Severe degenerative changes are seen in the hindfo ot. No definite fractures appreciated. CONCLUSION: Severe degenerative changes, no definite fracture. Fracture would be very difficult to exclude given the degree of osteopenia. Electronically signed by: Sander Desai MD Board Certified Radiologist 10/14/2018 7:00 AM EST
--- NOTE | 2018-10-14 08:21 | P.HPIM ---
History of Present Illness Primary Care Physician: Ivelisse Grijalva History of Present Illness: This is an 83-year-old male with history of CAD s/p CABG, hypertension, COPD on home oxygen, stroke, BPH with left ankle fracture in August 2017 treated conservatively presenting to the emergency department with left hip pain and right shoulder pain after sliding out of his recliner. Allegedly, the patient was found by his lying on his right side. He also reported he did hit his left ankle and has chronic pain related to his prior fracture. At baseline, the patient is not ambulatory since his left ankle fracture. He also has a chronic wound involving the left heel managed by wound care. Of note, the patient has increasing lower extremity edema on the right compared to the left, but has been urinating a lot hence he stopped taking his Lasix since 4 days ago. There is no note of focal weakness, numbness, tingling , loss of consciousness or head trauma. The patient is on oxygen at 2 L at home but on the way to the hospital, the patient desaturated hence his oxygen was increased to 4 L. No note of chest pain, shortness of breath more than baseline, palpitations, urinary symptoms, diarrhea or abdominal pain. Of note, the patient was recently in the hospital and discharged a month ago after treatment for COPD with hypercapnia/carbon dioxide retention and chronic wounds. Inpatient Certification Inpatient Certification: I certify that the inpatient services were ordered in accordance with Medicare regulations governing the order. This includes certification that hospital inpatient services are reasonable and necessary and in the case of services not specified as inpatient-only under 42 CFR 419.22(n), that they are appropriately provided as inpatient services in accordance to with the 2-midnight benchmark under 43 CFR 412.3(e) Estimated Total Length of Stay (Days): 3 Plans for Post Hospital Care: Not yet determined Review of Systems Review of Systems: all other systems reviewed are negative [facility] Medical History Medical History CAD (coronary artery disease) (Acute) CHF (congestive heart failure) (Acute) BPH (benign prostatic hyperplasia) (Acute) CHF (congestive heart failure) (Acute) COPD (chronic obstructive pulmonary disease) (Acute) Depression (Acute) HTN (hypertension) (Acute) Liver cancer (Acute) Prostate CA (Acute) Weakness (Acute) Surgical History Surgical History History of hip replacement (Acute) Hx of CABG (Acute) Hx of cholecystectomy (Acute) Social History Social History Substance History: No History of Abuse Second Hand Smoke Exposure: No Smoking Status: Former smoker Tobacco Type: Cigarettes How Often Do You Have a Drink Containing Alcohol: Monthly or less Recent Travel in [facility] within the Last 8 Weeks: No Recent Out of Country Travel within the Last 8 Weeks: No Immunization History Tetanus Immunization: >5 Years Medications and Allergies Allergies Allergy/AdvReac Type Severity Reaction Status Date / Time lansoprazole [From Prevacid] AdvReac Rash Verified 10/14/18 03:48 Home Medications Medication Instructions Recorded Confirmed Type calcium carbonate [Calcium 500] 500 mg PO BID 09/09/18 10/14/18 History cholecalciferol (vitamin D3) 1,000 unit PO DAILY 09/09/18 10/14/18 History [Vitamin D3] omeprazole 20 mg PO BID 09/09/18 10/14/18 History pentoxifylline 400 mg PO TID 09/09/18 10/14/18 History tamsulosin [Flomax] 0.4 mg PO DAILY 09/09/18 10/14/18 History vitamin E 1,000 unit PO DAILY 09/09/18 10/14/18 History aspirin [Aspir-81] 81 mg PO DAILY 10/14/18 10/14/18 History escitalopram oxalate [Lexapro] 10 mg PO DAILY 10/14/18 10/14/18 History furosemide [Lasix] 40 mg PO DAILY 10/14/18 10/14/18 History metoprolol succinate 25 mg PO BID 10/14/18 10/14/18 History potassium chloride 10 meq PO BID 10/14/18 10/14/18 History Active Medications: Active Medications Acetaminophen (Tylenol) 650 mg PO Q4H PRN PRN Reason: Temp > 100.4 Al Hydroxide/Mg Hydroxide (Milk Of Magnesia Liq) 30 ml PO Q12H PRN PRN Reason: Mild Constipation Bisacodyl (Dulcolax Supp) 10 mg RECTAL DAILY PRN PRN Reason: SEVERE CONSITIPATION Escitalopram Oxalate (Lexapro) 10 mg PO DAILY ALVIN Furosemide (Lasix) 40 mg PO DAILY ALVIN Sodium Chloride (Ns Inj) 1,000 mls @ 100 mls/hr IV.CONT .Q10H ALVIN Lactulose (Lactulose Liq) 30 ml PO DAILY PRN PRN Reason: SEVERE CONSITIPATION Metoprolol Succinate (Toprol Xl) 25 mg PO BID [facility] Ondansetron HCl (Zofran Inj) 4 mg IV.PUSH Q6H PRN PRN Reason: NAUSEA OR VOMITING Pantoprazole Sodium (Protonix) 20 mg PO BID [facility] Senna/Docusate Sodium (Chayo-Colace) 1 tab PO BID [facility] Sennosides (Senokot) 17.2 mg PO Q12H PRN PRN Reason: Moderate Constipation Sodium Chloride (Ns Flush) 2 ml IV.FLUSH BID ALVIN Sodium Chloride (Ns Flush) 2 ml IV.FLUSH PRN PRN PRN Reason: FLUSH AFTER USING IV ACCESS Tamsulosin HCl (Flomax) 0.4 mg PO DAILY [facility] Physical Exam Vital signs: Last Vital Signs Temp 98.1 F 10/14/18 03:33 Pulse 62 10/14/18 03:57 Resp 18 10/14/18 03:33 BP 147/64 H 10/14/18 03:33 Pulse Ox 97 10/14/18 03:57 Intake & Output 10/12/18 10/13/18 10/14/18 10/15/18 06:59 06:59 06:59 06:59 Weight 113.398 kg Narrative: Not in distress, sleepy but easily arousable Grubbs conjunctivae, pupils equal round reactive to light Supple neck Regular rate and rhythm, no murmurs appreciated Decreased breath sounds bilaterally, no crackles or wheezing Abdomen soft, nontender, no guarding, nondistended Bilateral lower extremities weak, about 4/5, symmetrical, bilateral lower extremity edema With chronic skin changes, right more than left, about 1+ on the right.Positive tenderness on the left ankle. Positive left heel pressure ulcer, healing, no signs of any, no discharge. Alert awake and oriented x3, no focal deficits. Results Labs CBC & Chem 7: 10/14/18 03:52 10/14/18 03:52 Imaging Impressions Ankle X-Ray 10/14/18 00:00 CONCLUSION: Severe degenerative changes, no definite fracture. Fracture would be very difficult to exclude given the degree of osteopenia. Cervical Spine CT 12/19/18 03:48 CONCLUSION: 1. Minimal retrolisthesis C3 on 4. 2. Advanced multilevel degenerative changes. 3. Minimal lucencies at C2 uncertain etiology. 4. No fracture. Chest X-Ray 10/14/18 03:48 CONCLUSION: Diminished lung volumes with bibasilar atelectasis. Head CT 10/14/18 03:48 CONCLUSION: 1. 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 2. No acute intracranial abnormality. . Pelvis X-Ray 10/14/18 03:48 CONCLUSION: No acute fracture. Venous Doppler Study 10/14/18 03:48 CONCLUSION: 1. The study is negative for lower extremity deep venous thrombosis. Foot X-Ray 10/14/18 04:00 CONCLUSION: 1. Lucencies in the distal tibia appears to be related to new fracture just distal to the old fracture sites. 2. Diffuse soft tissue swelling. 3. Extensive arthropathy and fusion of the midfoot and hindfoot. Caprini VTE Risk Assessment Caprini VTE Risk Assessment: Moderate/High Risk (score >= 2) Caprini Risk Assessment Model: Point Value = 1 Point Value = 2 Point Value = 3 Point Value = 5 Age 41-60 Minor surgery BMI > 25 kg/m2 Swollen legs Varicose veins or History of unexplained or recurrent spontaneous Oral contraceptives or hormone replacement Sepsis (< 1 month) Serious lung disease, including pneumonia (< 1 month) Abnormal pulmonary function Acute myocardial infarction Congestive heart failure (< 1 month) History of inflammatory bowel disease Medical patient at bed rest Age 61-74 Arthroscopic surgery Major open surgery (> 45 min) Laparoscopic surgery (> 45 min) Malignancy Confined to bed (> 72 hours) Immobilizing plaster cast Central venous access Age >= 75 History of VTE Family history of VTE Factor V Leiden Prothrombin [id number] Lupus anticoagulant Anticardiolipin antibodies Elevated serum homocysteine Heparin-induced thrombocytopenia Other congenital or acquired thrombophilia Stroke (< 1 month) Elective arthroplasty Hip, pelvis, or leg fracture Acute spinal cord injury (< 1 month) Prophylaxis Regimen: Total Risk Factor Score Risk Level Prophylaxis Regimen 0-1 Low Early ambulation 2 Moderate Order ONE of the following: *Sequential Compression Device (SCD) *Heparin 5000 units SQ BID 3-4 Higher Order ONE of the following medications: *Heparin 5000 units SQ TID *Enoxaparin/Lovenox 40 mg SQ daily (WT < 150 kg, CrCl > 30 mL/min) *Enoxaparin/Lovenox 30 mg SQ daily (WT < 150 kg, CrCl > 10-29 mL/min) *Enoxaparin/Lovenox 30 mg SQ BID (WT < 150 kg, CrCl > 30 mL/min) AND/OR *Sequential Compression Device (SCD) 5 or more Highest Order ONE of the following medications: *Heparin 5000 units SQ TID (Preferred with Epidurals) *Enoxaparin/Lovenox 40 mg SQ daily (WT < 150 kg, CrCl > 30 mL/min) *Enoxaparin/Lovenox 30 mg SQ daily (WT < 150 kg, CrCl > 10-29 mL/min) *Enoxaparin/Lovenox 30 mg SQ BID (WT < 150 kg, CrCl > 30 mL/min) AND *Sequential Compression Device (SCD) Assessment and Plan Plan This is an 83-year-old male with history of coronary artery disease status post CABG, hypertension, COPD on home oxygen with left ankle fracture last year, managed conservatively presenting with a fall sustaining new left ankle fractures. Hypoxemic and chronic hypercapneic respiratory failure secondary to COPD - Chest x-ray showed diminished lung volumes with bibasilar atelectasis, incentive spirometry, monitor closely, CPAP at night, bronchodilators and oxygen support. Monitor CO2 and pCO2 at 69. Neurochecks. Fall with Left ankle fracture - pelvis x-ray was unremarkable, left foot x-ray revealed lucencies in the distal tibia that appears to be related to new fractures just distal to the old fracture sites, diffuse tissue swelling and extensive arthropathy and fusion of the midfoot and hindfoot. Ultrasound of the right lower extremity negative for DVT. 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 CT scan of the C-spine showed retrolisthesis of C3 and C4, advanced multilevel degenerative changes but no fracture noted. Consult orthopedics. Hydrocodone for pain control. Coronary artery disease, congestive heart failure-restart Lasix, metoprolol, check hemoglobin A1c, BNP 189, check TTE, check BMP tomorrow Mild thrombocytopenia-baseline, monitor, unknown etiology DVT PPx: start after surgery, SCDs for now on the R leg
[2018-10-14] MEDS ORDERED: Ibuprofen 400 MG Tablet PO PRN (08:58)
[2018-10-14] MEDS ORDERED: Naloxone Inj 0.4 MG/ML Vial IV.PUSH PRN (08:58)
[2018-10-14] MEDS ORDERED: Morphine Inj 4 MG/ML Vial IV.PUSH PRN (08:58)
--- NOTE | 2018-10-14 10:10 | P.PNOP ---
Subjective Interval history: This is an 83-year-old male with history of CAD s/p CABG, hypertension, COPD on home oxygen, stroke, BPH with left ankle fracture in August 2017 treated conservatively presenting to the emergency department with left hip pain and right shoulder pain after sliding out of his recliner. Allegedly, the patient was found by his lying on his right side. He also reported he did hit his left ankle and has chronic pain related to his prior fracture. At baseline, the patient is not ambulatory since his left ankle fracture. He also has a chronic wound involving the left heel managed by wound care. <Tomás Dooley - Last Filed: 10/14/18 10:00> Physical Exam Vital signs: Vital Signs 10/14/18 03:33 10/14/18 03:57 10/14/18 07:00 Temperature 98.1 F Pulse Rate 63 62 56 L Respiratory Rate 18 15 Blood Pressure 147/64 H 140/62 Pulse Oximetry 98 97 94 L 10/14/18 08:00 Temperature 97.2 F L Pulse Rate 59 L Respiratory Rate 18 Blood Pressure 111/56 L Pulse Oximetry 95 Intake & Output 10/13/18 10/14/18 10/14/18 18:59 06:59 18:59 Weight 113.398 kg 113.39 kg Other: Weight On Admission 113.39 kg Narrative: Right upper extremity: Examination reveals contractures to the right shoulder with moderate pain with movement. There is no pain with elbow or wrist range of motion. He has good capillary refills and distal pulses. He has weak extension and flexion of all fingers Left upper extremity: No pain with range of motion of shoulder elbow wrist or fingers. Distally intact sensation is able to extend his fingers make a fist. Right lower extremity: No pain with hip knee or ankle motion. 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 There is good tissue perfusion and skin is intact. Pulses are weak. Left lower extremity: No pain with hip or knee range of motion. He has tenderness to palpation over the distal tibia. No significant laxity is noted. Skin is intact over the distal tibia. He continues to have chronic heel wound with dressing applied. He states he has sensation distally and throughout the foot. No pain with movement of toes or midfoot <Tomás Dooley Filed: 10/14/18 10:00> Vital signs: Vital Signs 10/15/18 11:57 10/15/18 12:00 10/15/18 15:49 Temperature 97.8 F Pulse Rate 98 H 76 Respiratory Rate 25 H 16 Blood Pressure 151/91 H Pulse Oximetry 98 93 L 96 10/15/18 16:00 10/15/18 19:50 10/15/18 20:00 Temperature 98.3 F 97.3 F L Pulse Rate 84 87 Respiratory Rate 23 17 Blood Pressure 129/62 147/67 H Pulse Oximetry 92 L 958 H 93 L Intake & Output 10/15/18 10/16/18 10/16/18 18:59 06:59 18:59 Intake Total 465 / 465 Output Total 1200 / 1200 1150 / 1150 Balance -735 / -735 -1150 / -1150 Intake: IV 465 / 465 NS Inj 1,000 ML @ 84 mls/hr IV. 465 / 465 CONT .[id number] [facility] Rx#:[id number] Output: Urine 1150 / 1150 Urine Amount (Catheter) 1200 / 1200 Indwelling Urethral Catheter 1200 / 1200 Other: Date of Last Bowel Movement 10/14/18 <Imtiaz Little - Last Filed: 10/16/18 10:04> Results - Labs CBC & Chem 7: 10/14/18 03:52 10/14/18 03:52 Laboratory Results - last 24 hr 10/14/18 10/14/18 10/14/18 03:52 03:52 03:52 WBC 3.8 L RBC 4.16 L Hgb 12.4 L Hct 38.2 L MCV 91.8 MCH 29.8 MCHC 32.4 RDW 14.5 Plt Count 94 L MPV 9.3 Prelim Diff (Auto) Slide review pending Neut % (Auto) 51.7 Lymph % (Auto) 34.6 [place] % (Auto) 8.3 H Eos % (Auto) 4.8 H Baso % (Auto) 0.6 Neut # (Auto) 2.0 Lymph # (Auto) 1.3 [place] # (Auto) 0.3 Eos # (Auto) 0.2 Baso # (Auto) 0.0 WBC Differential . Diff Scan Auto diff confirmed Differential Comment . Platelet Estimate Normal Platelet Morphology Normal Stomatocytes 1+ H PT 10.6 INR 1.0 APTT 32.4 H Sodium 145 Potassium 4.2 Chloride 99 Carbon Dioxide 43.6 H Anion Gap 2 L BUN 31 H Creatinine 0.57 L Estimated GFR Greater than 89 Random Glucose 107 H Calcium 8.4 L Magnesium 2.0 Total Bilirubin 0.3 AST 17 ALT 13 Alkaline Phosphatase 75 Total Creatine Kinase 37 L Troponin I Less than 0.02 L B-Natriuretic Peptide Total Protein 5.7 L Albumin 2.8 L Lipase 92 10/14/18 03:52 WBC RBC Hgb Hct MCV MCH MCHC RDW Plt Count MPV Prelim Diff (Auto) Neut % (Auto) Lymph % (Auto) [place] % (Auto) Eos % (Auto) Baso % (Auto) Neut # (Auto) Lymph # (Auto) [place] # (Auto) Eos # (Auto) Baso # (Auto) WBC Differential Diff Scan Differential Comment Platelet Estimate Platelet Morphology Stomatocytes PT INR APTT Sodium Potassium Chloride Carbon Dioxide Anion Gap BUN Creatinine Estimated GFR Random Glucose Calcium Magnesium Total Bilirubin AST ALT Alkaline Phosphatase Total Creatine Kinase Troponin I B-Natriuretic Peptide 189 H Total Protein Albumin Lipase - Imaging Impressions Ankle X-Ray 10/14/18 00:00 CONCLUSION: Severe degenerative changes, no definite fracture. Fracture would be very difficult to exclude given the degree of osteopenia. Cervical Spine CT 10/14/18 03:48 CONCLUSION: 1. Minimal retrolisthesis C3 on 4. 2. Advanced multilevel degenerative changes. 3. Minimal lucencies at C2 uncertain etiology. 4. No fracture. Chest X-Ray 10/14/18 03:48 CONCLUSION: Diminished lung volumes with bibasilar atelectasis. Head CT 10/14/18 03:48 CONCLUSION: 1. 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 2. No acute intracranial abnormality. . Pelvis X-Ray 10/14/18 03:48 CONCLUSION: No acute fracture. Venous Doppler Study 10/14/18 03:48 CONCLUSION: 1. The study is negative for lower extremity deep venous thrombosis. Foot X-Ray 10/14/18 04:00 CONCLUSION: 1. Lucencies in the distal tibia appears to be related to new fracture just distal to the old fracture sites. 2. Diffuse soft tissue swelling. 3. Extensive arthropathy and fusion of the midfoot and hindfoot. <Tomás Dooley - Last Filed: 10/14/18 10:00> - Labs CBC & Chem 7: 10/15/18 03:54 10/15/18 03:54 Laboratory Results - last 24 hr 10/15/18 11:19 Puncture Site Right radial Patient Temperature 98.6 O2 Saturation 94 ABG pH 7.31 L ABG pCO2 85 H* ABG pO2 88 ABG HCO3 42 H ABG O2 Content 15.7 ABG Base Excess 14.7 H ABG Methemoglobin 0.9 Jabari Test Present Hemoglobin 11.8 L Carboxyhemoglobin 1.7 O2 Delivery Device Simple mask Liter Flow 9.00 Critical Value Yes <Imtiaz Little - Last Filed: 10/16/18 10:04> Assessment and Plan - Assessment and Plan Left acute distal tibia fracture versus chronic degenerative changes and previous fracture to left distal tibia and fibula X-rays show significant osteopenia of the left ankle and distal tibia with severe degenerative changes. It does appear that there is a lucency over the distal tibia distal to the previous fracture site. Patient clinically has pain to palpation over this region of the tibia. I discussed with Dr. Little for CT is warranted to rule out fracture of the distal tibia. He is in agreement. At this time we will continue to keep him non-weightbearing on the left lower extremity until CT scan is performed. Wound care will continue to manage chronic heel ulceration on left foot. <Tomás Dooley - Last Filed: 10/14/18 10:00> - Assessment and Plan I also saw and examined this patient. History, past medical history, social history, review of systems, physical exam, radiographs, assessment, and plan were reviewed. Plan of care was discussed and established. Plan on nonoperative treatment. Patient will be placed into splints that I will allow access to the heel wound. A mid-level provider in my office (nurse practitioner or physician respiratory care assistant) may see this patient on follow-up visits and continue to implement the objectives of this plan including: Starting or adjusting medications, injections, cast application, orthotics, brace application, physical therapy, radiological studies (including x-ray, MRI, CT, ultrasound, bone scan), vascular studies, neurologic studies, specialist consultation, and proceeding with surgical management, as appropriate. <Imtiaz Little - Last Filed: 10/16/18 10:04>
--- NOTE | 2018-10-14 10:20 | P.CONOP ---
[facility] Orthopedics Consult Note - [facility] Consult date: 10/14/18 Requesting physician: Ashlyn Dunn Consult reason: fracture Chief complaint: Left Tib-Fib Fracture s/p Fall Narrative: This is an 83-year-old male with history of CAD s/p CABG, hypertension, COPD on home oxygen, stroke, BPH with left ankle fracture in August 2017 treated conservatively presenting to the emergency department with left hip pain and right shoulder pain after sliding out of his recliner. Allegedly, the patient was found by his lying on his right side. He also reported he did hit his left ankle and has chronic pain related to his prior fracture. At baseline, the patient is not ambulatory since his left ankle fracture. He also has a chronic wound involving the left heel managed by wound care. Of note, the patient has increasing lower extremity edema on the right compared to the left, but has been urinating a lot hence he stopped taking his Lasix since 4 days ago. There is no note of focal weakness, numbness, tingling, loss of consciousness or head trauma. The patient is on oxygen at 2 L at home but on the way to the hospital, the patient desaturated hence his oxygen was increased to 4 L. No note of chest pain, shortness of breath more than baseline, palpitations, urinary symptoms, diarrhea or abdominal pain. Of note, the patient was recently in the hospital and discharged a month ago after treatment for COPD with hypercapnia/carbon dioxide retention and chronic wounds. <Tomás Dooley - Last Filed: 10/14/18 10:10> Review of Systems Constitutional: Reports fatigue, Reports weakness Eyes: Denies change in vision Ears, Nose, Mouth, and Throat: Reports poor balance, Denies abnormal hearing Cardiovascular: Reports shortness of breath, Denies chest pain Respiratory: Reports shortness of breath, Denies cough Gastrointestinal: Denies abdominal pain, Denies difficulty swallowing Genitourinary: Denies blood in urine Musculoskeletal: Reports joint pain, Reports joint swelling Comments: Chronic heel ulceration of left heel Psychiatric: Denies anxiety, Denies change in appetite Endocrine: Denies cold intolerance Hematologic/Lymphatic: Denies easy bleeding <Tomás Dooley - Last Filed: 10/14/18 10:10> PMFSH - History History Provided By: Family Member, Significant Other - Medical History Medical History: Medical History (Last Reviewed 10/14/18 @ 08:46 by Jordan Barrera) CAD (coronary artery disease) CHF (congestive heart failure) BPH (benign prostatic hyperplasia) CHF (congestive heart failure) COPD (chronic obstructive pulmonary disease) Depression HTN (hypertension) Liver cancer Prostate CA Weakness - Surgical History Surgical History: Surgical History (Last Reviewed 10/14/18 @ 08:46 by Jordan Barrera) History of hip replacement Hx of CABG Hx of cholecystectomy - Tobacco History Second Hand Smoke Exposure: No Tobacco Use In Past 30 Days: No (patient quit 54 years ago) Smoking Status: Former smoker Tobacco Type: Cigarettes - Alcohol History How Often Do You Have a Drink Containing Alcohol: Never - Substance Use History Substance History: No History of Abuse - Travel History Recent Travel in the [place] Within the Last 8 Weeks: No Recent Travel Out of the Country Within the Last 8 Weeks: No - Immunization History Tetanus Immunization: >5 Years Hx Influenza Vaccine This Season: Yes <Tomás Dooley - Last Filed: 10/14/18 10:10> - Medical History Medical History: Medical History (Last Reviewed 10/14/18 @ 08:46 by Jordan Barrera) CAD (coronary artery disease) CHF (congestive heart failure) BPH (benign prostatic hyperplasia) CHF (congestive heart failure) COPD (chronic obstructive pulmonary disease) Depression HTN (hypertension) Liver cancer Prostate CA Weakness - Surgical History Surgical History: Surgical History (Last Reviewed 10/14/18 @ 08:46 by Jordan Barrera) History of hip replacement Hx of CABG Hx of cholecystectomy <Imtiaz Kidd - Last Filed: 10/16/18 10:05> Medications and Allergies Active Medications: Active Medications Acetaminophen (Tylenol) 650 mg PO Q4H PRN PRN Reason: Temp > 100.4 Hydrocodone Bitart/Acetaminophen ([place] 10/325) 1 tab PO Q4H PRN PRN Reason: PAIN SCALE 6 TO 10 Hydrocodone Bitart/Acetaminophen ([place] 5/325) 1 tab PO Q4H PRN PRN Reason: PAIN SCALE 3 TO 5 Al Hydroxide/Mg Hydroxide (Milk Of Magnesia Liq) 30 ml PO Q12H PRN PRN Reason: Mild Constipation Albuterol (Duoneb Neb (Cha)) 1 ampul NEB Q6HR NEB CHA Albuterol (Duoneb Neb (Prn)) 1 ampul NEB Q2HR NEB PRN PRN Reason: SOB/wheezing Bisacodyl (Dulcolax Supp) 10 mg RECTAL DAILY PRN PRN Reason: SEVERE CONSITIPATION Escitalopram Oxalate (Lexapro) 10 mg PO DAILY [facility] Furosemide (Lasix) 40 mg PO DAILY [facility] Sodium Chloride (Ns Inj) 1,000 mls @ 84 mls/hr IV.CONT .[id number] [facility] Ibuprofen (Motrin) 400 mg PO Q6HR PRN PRN Reason: PAIN SCALE 1 TO 2 Lactulose (Lactulose Liq) 30 ml PO DAILY PRN PRN Reason: SEVERE CONSITIPATION Metoprolol Succinate (Toprol Xl) 25 mg PO BID [facility] Morphine Sulfate (Morphine Inj) 2 mg IV.PUSH Q3H PRN PRN Reason: BREAKTHROUGH PAIN Naloxone HCl (Narcan Inj) 0.4 mg IV.PUSH UNSCH PRN PRN Reason: SEE LABEL COMMENTS Ondansetron HCl (Zofran Inj) 4 mg IV.PUSH Q6H PRN PRN Reason: NAUSEA OR VOMITING Pantoprazole Sodium (Protonix) 20 mg PO BID [facility] Senna/Docusate Sodium (Chayo-Colace) 1 tab PO BID [facility] Sennosides (Senokot) 17.2 mg PO Q12H PRN PRN Reason: Moderate Constipation Sodium Chloride (Ns Flush) 2 ml IV.FLUSH BID [facility] Sodium Chloride (Ns Flush) 2 ml IV.FLUSH PRN PRN PRN Reason: FLUSH AFTER USING IV ACCESS Tamsulosin HCl (Flomax) 0.4 mg PO DAILY [facility] <Tomás Dooley - Last Filed: 10/14/18 10:10> <Imtiaz Kidd - Last Filed: 10/16/18 10:05> Allergies Allergy/AdvReac Type Severity Reaction Status Date / Time prednisone Allergy Intermediate Rash Verified 10/14/18 09:50 lansoprazole [From Prevacid] AdvReac Rash Verified 10/14/18 03:48 Home Medications Medication Instructions Recorded Confirmed Type calcium carbonate [Calcium 500] 500 mg PO BID 09/09/18 10/14/18 History cholecalciferol (vitamin D3) 1,000 unit PO DAILY 09/09/18 10/14/18 History [Vitamin D3] omeprazole 20 mg PO BID 09/09/18 10/14/18 History pentoxifylline 400 mg PO TID 09/09/18 10/14/18 History tamsulosin [Flomax] 0.4 mg PO DAILY 09/09/18 10/14/18 History vitamin E 1,000 unit PO DAILY 09/09/18 10/14/18 History aspirin [Aspir-81] 81 mg PO DAILY 10/14/18 10/14/18 History escitalopram oxalate [Lexapro] 10 mg PO DAILY 10/14/18 10/14/18 History furosemide [Lasix] 40 mg PO DAILY 10/14/18 10/14/18 History metoprolol succinate 25 mg PO BID 10/14/18 10/14/18 History potassium chloride 10 meq PO BID 10/14/18 10/14/18 History Exam Vital signs: Vital Signs 10/14/18 03:33 10/14/18 03:57 10/14/18 07:00 Temperature 98.1 F Pulse Rate 63 62 56 L Respiratory Rate 18 15 Blood Pressure 147/64 H 140/62 Pulse Oximetry 98 97 94 L 10/14/18 08:00 Temperature 97.2 F L Pulse Rate 59 L Respiratory Rate 18 Blood Pressure 111/56 L Pulse Oximetry 95 Intake & Output 10/13/18 10/14/18 10/14/18 18:59 06:59 18:59 Weight 113.398 kg 113.39 kg Other: Weight On Admission 113.39 kg - Constitutional no acute distress - Routine HEENT Exam Head: Present: normocephalic, atraumatic Eye: Present: PERRL. Absent: periorbital ecchymosis ENT: Present: mucous membranes moist - Routine Neck Exam Absent: tracheal deviation - Routine Chest/Breast/Axilla Exam Chest wall: Absent: tenderness - Routine Respiratory Exam Absent: accessory muscle use - Routine Cardiovascular Exam Present: RRR - Routine Abdominal Exam Present: soft. Absent: distended - Routine Extremities Exam Comments: Right upper extremity: Examination reveals contractures to the right shoulder with moderate pain with movement. There is no pain with elbow or wrist range of motion. He has good capillary refills and distal pulses. He has weak extension and flexion of all fingers Left upper extremity: No pain with range of motion of shoulder elbow wrist or fingers. Distally intact sensation is able to extend his fingers make a fist. Right lower extremity: No pain with hip knee or ankle motion. 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 There is good tissue perfusion and skin is intact. Pulses are weak. Left lower extremity: No pain with hip or knee range of motion. He has tenderness to palpation over the distal tibia. No significant laxity is noted. Skin is intact over the distal tibia. He continues to have chronic heel wound with dressing applied. He states he has sensation distally and throughout the foot. No pain with movement of toes or midfoot - Routine Skin Exam Comments: Chronic wound to left heel - Routine Neurological Exam Present: alert, oriented X3 <Tomás Dooley - Last Filed: 10/14/18 10:10> Vital signs: Vital Signs 10/15/18 11:57 10/15/18 12:00 10/15/18 15:49 Temperature 97.8 F Pulse Rate 98 H 76 Respiratory Rate 25 H 16 Blood Pressure 151/91 H Pulse Oximetry 98 93 L 96 10/15/18 16:00 10/15/18 19:50 10/15/18 20:00 Temperature 98.3 F 97.3 F L Pulse Rate 84 87 Respiratory Rate 23 17 Blood Pressure 129/62 147/67 H Pulse Oximetry 92 L 958 H 93 L Intake & Output 10/15/18 10/16/18 10/16/18 18:59 06:59 18:59 Intake Total 465 / 465 Output Total 1200 / 1200 1150 / 1150 Balance -735 / -735 -1150 / -1150 Intake: IV 465 / 465 NS Inj 1,000 ML @ 84 mls/hr IV. 465 / 465 CONT .[id number] [facility] Rx#:[id number] Output: Urine 1150 / 1150 Urine Amount (Catheter) 1200 / 1200 Indwelling Urethral Catheter 1200 / 1200 Other: Date of Last Bowel Movement 10/14/18 <Imtiaz Kidd - Last Filed: 10/16/18 10:05> Results - Labs Result Diagrams: 10/14/18 03:52 10/14/18 03:52 Labs: Laboratory Results - last 24 hr 10/14/18 10/14/18 10/14/18 03:52 03:52 03:52 WBC 3.8 L RBC 4.16 L Hgb 12.4 L Hct 38.2 L MCV 91.8 MCH 29.8 MCHC 32.4 RDW 14.5 Plt Count 94 L MPV 9.3 Prelim Diff (Auto) Slide review pending Neut % (Auto) 51.7 Lymph % (Auto) 34.6 [place] % (Auto) 8.3 H Eos % (Auto) 4.8 H Baso % (Auto) 0.6 Neut # (Auto) 2.0 Lymph # (Auto) 1.3 [place] # (Auto) 0.3 Eos # (Auto) 0.2 Baso # (Auto) 0.0 WBC Differential . Diff Scan Auto diff confirmed Differential Comment . Platelet Estimate Normal Platelet Morphology Normal Stomatocytes 1+ H PT 10.6 INR 1.0 APTT 32.4 H Sodium 145 Potassium 4.2 Chloride 99 Carbon Dioxide 43.6 H Anion Gap 2 L BUN 31 H Creatinine 0.57 L Estimated GFR Greater than 89 Random Glucose 107 H Calcium 8.4 L Magnesium 2.0 Total Bilirubin 0.3 AST 17 ALT 13 Alkaline Phosphatase 75 Total Creatine Kinase 37 L Troponin I Less than 0.02 L B-Natriuretic Peptide Total Protein 5.7 L Albumin 2.8 L Lipase 92 10/14/18 03:52 WBC RBC Hgb Hct MCV MCH MCHC RDW Plt Count MPV Prelim Diff (Auto) Neut % (Auto) Lymph % (Auto) [place] % (Auto) Eos % (Auto) Baso % (Auto) Neut # (Auto) Lymph # (Auto) [place] # (Auto) Eos # (Auto) Baso # (Auto) WBC Differential Diff Scan Differential Comment Platelet Estimate Platelet Morphology Stomatocytes PT INR APTT Sodium Potassium Chloride Carbon Dioxide Anion Gap BUN Creatinine Estimated GFR Random Glucose Calcium Magnesium Total Bilirubin AST ALT Alkaline Phosphatase Total Creatine Kinase Troponin I B-Natriuretic Peptide 189 H Total Protein Albumin Lipase - Diagnostic results Imaging: Impressions Ankle X-Ray 10/14/18 00:00 CONCLUSION: Severe degenerative changes, no definite fracture. Fracture would be very difficult to exclude given the degree of osteopenia. Cervical Spine CT 10/14/18 03:48 CONCLUSION: 1. Minimal retrolisthesis C3 on 4. 2. Advanced multilevel degenerative changes. 3. Minimal lucencies at C2 uncertain etiology. 4. No fracture. Chest X-Ray 10/14/18 03:48 CONCLUSION: Diminished lung volumes with bibasilar atelectasis. Head CT 10/14/18 03:48 CONCLUSION: 1. 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 2. No acute intracranial abnormality. . Pelvis X-Ray 10/14/18 03:48 CONCLUSION: No acute fracture. Venous Doppler Study 10/14/18 03:48 CONCLUSION: 1. The study is negative for lower extremity deep venous thrombosis. Foot X-Ray 10/14/18 04:00 CONCLUSION: 1. Lucencies in the distal tibia appears to be related to new fracture just distal to the old fracture sites. 2. Diffuse soft tissue swelling. 3. Extensive arthropathy and fusion of the midfoot and hindfoot. Ankle/Foot x-ray: report reviewed, image reviewed <Tomás Dooley - Last Filed: 10/14/18 10:10> - Labs Result Diagrams: 10/15/18 03:54 10/15/18 03:54 Labs: Laboratory Results - last 24 hr 10/15/18 11:19 Puncture Site Right radial Patient Temperature 98.6 O2 Saturation 94 ABG pH 7.31 L ABG pCO2 85 H* ABG pO2 88 ABG HCO3 42 H ABG O2 Content 15.7 ABG Base Excess 14.7 H ABG Methemoglobin 0.9 Jabari Test Present Hemoglobin 11.8 L Carboxyhemoglobin 1.7 O2 Delivery Device Simple mask Liter Flow 9.00 Critical Value Yes <Imtiaz Kidd - Last Filed: 10/16/18 10:05> Assessment and Plan - Assessment and Plan Left acute distal tibia fracture versus chronic degenerative changes and previous fracture to left distal tibia and fibula X-rays show significant osteopenia of the left ankle and distal tibia with severe degenerative changes. It does appear that there is a lucency over the distal tibia distal to the previous fracture site. Patient clinically has pain to palpation over this region of the tibia. I discussed with Dr. Kidd for CT is warranted to rule out fracture of the distal tibia. He is in agreement. At this time we will continue to keep him non-weightbearing on the left lower extremity until CT scan is performed. Wound care will continue to manage chronic heel ulceration on left foot. Clinical findings and x-rays are discussed with Dr. Kidd and once CT scan is obtained we will renew to proceed with appropriate care. If fracture is confirmed we will aim for conservative measures if possible. <Tomás Dooley - Last Filed: 10/14/18 10:10> - Assessment and Plan I also saw and examined this patient. History, past medical history, social history, review of systems, physical exam, radiographs, assessment, and plan were reviewed. Plan of care was discussed and established. Plan on nonoperative treatment. A mid-level provider in my office (nurse practitioner or physician periodicals library assistant) may see this patient on follow-up visits and continue to implement the objectives of this plan including: Starting or adjusting medications, injections, cast application, orthotics, brace application, physical therapy, radiological studies (including x-ray, MRI, CT, ultrasound, bone scan), vascular studies, neurologic studies, specialist consultation, and proceeding with surgical management, as appropriate. <Imtiaz Kidd - Last Filed: 10/16/18 10:05>
[2018-10-14 12:09] LABS: Hemoglobin A1c 4.9 % (4.3-6.0)
--- NOTE | 2018-10-14 12:14 | CT ---
EXAM DATE: 10/14/2018 11:56 AM EST AGE/SEX: 83 years / Male INDICATIONS: Patient fell. Complains of left ankle pain. CLINICAL DATA: This is the patient's subsequent encounter. Patient reports that signs and symptoms h ave been present for 1 day and indicates a pain score of 6/10. MEDICAL/SURGICAL HISTORY: . Cardiovascular disease. Hypertension. Chronic obstructive pulmonary disease. Prostate cancer. . CABG. Cholecystectomy. Left total hip replacment RADIATION DOSE: 7.29 CTDI (mGy) COMPARISON: No prior exams available for comparison. TECHNIQUE: Multiple contiguous axial images were acquired using a multirow detector CT scanner witho ut contrast. Multiplanar reconstruction was performed in the sagittal and coronal planes. Using aut omated exposure control and adjustment of the mA and/or kV according to patient size, radiation dose was kept as low as reasonably achievable to obtain optimal diagnostic quality images. DICOM format i mage data is available electronically for review and comparison. FINDINGS: Bones: There is evidence of an acute nondisplaced oblique fracture involving the distal tibia below the old healed fracture. No definite acute fracture of the distal fibula is noted. Old healed fractur e deformity of the distal fibula is noted. Diffuse osteoporosis is noted involving the distal tibia, fibula and visualized bones of the ankle and foot. Severe arthritic changes are noted involving the a nkle joint. No acute fracture is noted involving the visualized portion of the foot. CONCLUSION: 1. Acute nondisplaced oblique fracture involving the distal tibia below the old healed fracture. 2. 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 Electronically signed by: Des Ness MD Board Certified Radiologist 10/14/2018 12:13 PM EST
[2018-10-14] MEDS: Escitalopram 10 MG Tablet PO SCH ×2 (12:50→13:04)
[2018-10-14] MEDS: Furosemide 40 MG Tablet PO SCH ×2 (12:50→13:04)
[2018-10-14] MEDS: Pantoprazole Sodium 20 MG DR Tablet PO SCH ×3 (12:51→21:02)
[2018-10-14] MEDS: Senna/Docusate Sodium 8.6/50 MG Tablet PO SCH ×3 (12:51→21:02)
[2018-10-14] MEDS: Sod Chloride 0.9% Inj 1,000 ML IV.CONT SCH ×2 (12:56→17:20)
--- NOTE | 2018-10-14 15:54 | ECG ---
Date Performed: 10/14/2018 Time Performed: 03:24:02 PTAGE: 83 years EKG: ATRIAL FIBRILLATION INTRAVENTRICULAR CONDUCTION DELAY INFERIOR MYOCARDIAL INFARCTION AZAR LATERAL MYOCARDIAL INFARCTION Since the previous tracing, no significant change noted ABNORMAL ECG NO PREVIOUS TRACING DOCTOR: Ashanti Bueno Interpretating Date/Time 10/14/2018 15:52:20
--- NOTE | 2018-10-14 17:40 | ECHRPT ---
Indication: SOB CONCLUSIONS Very technically difficult study. The left ventricular systolic function is low normal with an estimated ejection fraction in the rang e of 50- 55%. Mild concentric left ventricular hypertrophy. Trace mitral valve regurgitation. There is trace tricuspid valve regurgitation. BP: / HR: Rhythm: Sinus MEASUREMENTS (Male / Female) Normal Values Technical Quality:Very technically difficult study 2D ECHO LV Diastolic Diameter PLAX 5.1 cm 4.2 - 5.9 / 3.9 - 5.3 cm LV Systolic Diameter PLAX 4.0 cm IVS Diastolic Thickness 1.2 cm 0.6 - 1.0 / 0.6 - 0.9 cm LVPW Diastolic Thickness 1.2 cm 0.6 - 1.0 / 0.6 - 0.9 cm LV Relative Wall Thickness 0.5 LVOT Diameter 2.1 cm LA Systolic Diameter LX 4.7 cm 3.0 - 4.0 / 2.7 - 3.8 cm M-MODE LV Diastolic Diameter MM 6.4 cm 4.2 - 5.9 / 3.9 - 5.3 cm LV Systolic Diameter MM 5.0 cm LV Ejection Fraction MM Teich 44.2 % IVS Diastolic Thickness MM 1.2 cm 0.6 - 1.0 / 0.6 - 0.9 cm LVPW Diastolic Thickness MM 1.2 cm 0.6 - 1.0 / 0.6 - 0.9 cm LV Relative Wall Thickness MM 0.4 0.24 - 0.42 / 0.22 - 0.42 Aortic Root Diameter MM 3.2 cm LA Systolic Diameter MM 4.9 cm LA Ao Ratio MM 1.5 AV Cusp Separation MM 2.5 cm DOPPLER AV Peak Velocity 85.5 cm/s AV Peak Gradient 2.9 mmHg LVOT Peak Velocity 60.7 cm/s LVOT Peak Gradient 1.5 mmHg AV Area Cont Eq pk 2.5 cm MV Area PHT 6.9 cm TR Peak Velocity 267.0 cm/s TR Peak Gradient 28.5 mmHg Right Atrial Pressure 10.0 mmHg Pulmonary Artery Systolic Pressu 38.5 mmHg Right Ventricular Systolic Press 38.5 mmHg PV Peak Velocity 95.0 cm/s PV Peak Gradient 3.6 mmHg FINDINGS LEFT VENTRICLE The left ventricular systolic function is low normal with an estimated ejection fraction in the rang e of 50- 55%. Normal left ventricular size. Mild concentric left ventricular hypertrophy. No regional wall motion abnormalities are present. RIGHT VENTRICLE Normal right ventricular size and systolic function. LEFT ATRIUM The left atrial size is mildly dilated. RIGHT ATRIUM The right atrial size is normal. ATRIAL SEPTUM Normal atrial septal thickness without atrial level shunting by limited color doppler interrogation. AORTA The aortic root and proximal ascending aorta are normal in size on limited imaging. MITRAL VALVE Structurally normal mitral valve. Mild mitral annular calcification. No mitral valve stenosis. Trace mitral valve regurgitation. AORTIC VALVE Probable trileaftlet No aortic valve regurgitation. No aortic valve stenosis. Aortic valve sclerosis is present. TRICUSPID VALVE Structurally normal tricuspid valve. There is trace tricuspid valve regurgitation. The estimated pulmonary arterial pressure is 38.5 mmHg. PULMONARY VALVE No pulmonary valve regurgitation or stenosis. VESSELS The inferior vena cava is normal in size. PERICARDIUM No pericardial effusion. Arnol Carney DO (Electronically Signed) Final Date:14 October 2018 17:39
[2018-10-14] MEDS ORDERED: Artificial Tears Opth Drops 15 ML Bottle EACH EYE PRN (20:00)
[2018-10-14] MEDS ORDERED: Melatonin 5 MG Tablet PO PRN (21:00)
[2018-10-15] MEDS: Sod Chloride 0.9% Inj 1,000 ML IV.CONT SCH (03:16)
[2018-10-15 05:12] LABS: Baso % (Auto) 0.2 % (0.0-2.0); Eos # (Auto) 0.2 th/mm3 (0.0-0.4); Eos % (Auto) 3.4 % (0.0-4.0); Hematocrit 35.9 % (39.0-51.0); Hemoglobin 11.6 gm/dL (13.0-17.0); Lymph # (Auto) 0.8 th/mm3 (1.0-4.8); Lymph % (Auto) 12.7 % (9.0-44.0); Mean Corpuscular HGB Conc 32.3 % (32.0-36.0); Mean Corpuscular Hemoglobin 29.5 pg (27.0-34.0); Mean Corpuscular Volume 91.3 fL (80.0-100.0); Mean Platelet Volume 9.5 fL (7.0-11.0); Mono # (Auto) 0.4 th/mm3 (0.0-0.9); Neut # (Auto) 4.5 th/mm3 (1.8-7.7); Neut % (Auto) 76.7 % (16.0-70.0); Platelet Count 81 th/mm3 (150-450); Red Blood Count 3.93 mil/mm3 (4.50-5.90); White Blood Count 5.9 th/mm3 (4.0-11.0)
[2018-10-15 05:37] LABS: Anion Gap 1 meq/L (5-15); Blood Urea Nitrogen 27 mg/dL (7-18); Calcium 8.6 mg/dL (8.5-10.1); Carbon Dioxide 40.6 meq/L (21.0-32.0); Chloride 99 meq/L (98-107); Glomerular Filtration Rate Greater Than 89 mL/min (>89); Glucose,Random 117 mg/dL (74-106); Potassium 4.1 meq/L (3.5-5.1); Sodium 141 meq/L (136-145)
[2018-10-15] MEDS: Pantoprazole Sodium 20 MG DR Tablet PO SCH (09:25)
[2018-10-15] MEDS: Furosemide 40 MG Tablet PO SCH (09:25)
[2018-10-15] MEDS: Escitalopram 10 MG Tablet PO SCH (09:25)
[2018-10-15] MEDS: Senna/Docusate Sodium 8.6/50 MG Tablet PO SCH (09:26)
[2018-10-15 11:25] LABS: ABG Base Excess 14.7 mmol/L (-2-2); ABG PCO2 85 mmHg (38-42); ABG PO2 88 mmHg (61-120)
--- NOTE | 2018-10-15 12:13 | P.PNOP ---
Subjective Interval history: Patient is comfortable and is on CPAP. No new complaints or changes Physical Exam Vital signs: Vital Signs 10/14/18 12:55 10/14/18 16:00 10/14/18 16:44 Temperature 97.5 F L Pulse Rate 51 L 65 62 Respiratory Rate 20 18 16 Blood Pressure 121/60 Pulse Oximetry 91 L 10/14/18 19:35 10/14/18 20:00 10/14/18 21:37 Temperature 97.1 F L Pulse Rate 76 86 Respiratory Rate 18 17 Blood Pressure 146/68 H Pulse Oximetry 93 L 94 L 92 L 10/14/18 23:30 10/14/18 23:31 10/15/18 01:33 Temperature 97.4 F L Pulse Rate 70 Respiratory Rate 18 20 Blood Pressure 129/60 Pulse Oximetry 94 L 92 L 10/15/18 02:06 10/15/18 04:00 10/15/18 04:20 Temperature 98 F Pulse Rate 72 71 Respiratory Rate 17 17 Blood Pressure 117/83 Pulse Oximetry 95 96 10/15/18 05:57 10/15/18 08:00 10/15/18 09:33 Temperature 97.6 F Pulse Rate 73 75 Respiratory Rate 22 18 Blood Pressure 124/64 Pulse Oximetry 93 L 90 L 96 10/15/18 11:57 Temperature Pulse Rate Respiratory Rate Blood Pressure Pulse Oximetry 98 Intake & Output 10/14/18 10/15/18 10/15/18 18:59 06:59 18:59 Intake Total 1050 / 1050 465 / 465 Output Total 350 / 350 Balance 700 / 700 465 / 465 Weight 113.39 kg 110.2 kg Intake: IV 1000 / 1000 465 / 465 NS Inj 1,000 ML @ 84 mls/hr IV. 1000 / 1000 465 / 465 CONT .[id number] [facility] Rx#:[id number] Oral 50 / 50 Output: Urine 350 / 350 Other: # Voids 2 Date of Last Bowel Movement 10/14/18 10/14/18 # Bowel Movements 1 2 Weight On Admission 113.39 kg Narrative: Right upper extremity: Examination reveals contractures to the right shoulder with moderate pain with movement. There is no pain with elbow or wrist range of motion. He has good capillary refills and distal pulses. He has weak extension and flexion of all fingers Left upper extremity: No pain with range of motion of shoulder elbow wrist or fingers. Distally intact sensation is able to extend his fingers make a fist. Right lower extremity: No pain with hip knee or ankle motion. 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 There is good tissue perfusion and skin is intact. Pulses are weak. Left lower extremity: No pain with hip or knee range of motion. He has tenderness to palpation over the distal tibia. Short leg anterior splint in place. Stirrup ankle brace in position. No dressings over heel. He states he has sensation distally and throughout the foot. No pain with movement of toes Results - Labs CBC & Chem 7: 10/15/18 03:54 10/15/18 03:54 Laboratory Results - last 24 hr 10/14/18 10/15/18 10/15/18 03:52 03:54 03:54 WBC 5.9 RBC 3.93 L Hgb 11.6 L Hct 35.9 L MCV 91.3 MCH 29.5 MCHC 32.3 RDW 15.0 Plt Count 81 L MPV 9.5 Prelim Diff (Auto) Slide review pending Neut % (Auto) 76.7 H Lymph % (Auto) 12.7 Nicholas % (Auto) 7.0 Eos % (Auto) 3.4 Baso % (Auto) 0.2 Neut # (Auto) 4.5 Lymph # (Auto) 0.8 L Nicholas # (Auto) 0.4 Eos # (Auto) 0.2 Baso # (Auto) 0.0 WBC Differential . Diff Scan Auto diff confirmed Differential Comment . Puncture Site Patient Temperature O2 Saturation ABG pH ABG pCO2 ABG pO2 ABG HCO3 ABG O2 Content ABG Base Excess ABG Methemoglobin Jabari Test Hemoglobin Carboxyhemoglobin O2 Delivery Device Liter Flow Critical Value Sodium 141 Potassium 4.1 Chloride 99 Carbon Dioxide 40.6 H Anion Gap 1 L BUN 27 H Creatinine 0.50 L Estimated GFR Greater than 89 Random Glucose 117 H Hemoglobin A1c 4.9 Calcium 8.6 10/15/18 11:19 WBC RBC Hgb Hct MCV MCH MCHC RDW Plt Count MPV Prelim Diff (Auto) Neut % (Auto) Lymph % (Auto) Nicholas % (Auto) Eos % (Auto) Baso % (Auto) Neut # (Auto) Lymph # (Auto) Nicholas # (Auto) Eos # (Auto) Baso # (Auto) WBC Differential Diff Scan Differential Comment Puncture Site Right radial Patient Temperature 98.6 O2 Saturation 94 ABG pH 7.31 L ABG pCO2 85 H* ABG pO2 88 ABG HCO3 42 H ABG O2 Content 15.7 ABG Base Excess 14.7 H ABG Methemoglobin 0.9 Jabari Test Present Hemoglobin 11.8 L Carboxyhemoglobin 1.7 O2 Delivery Device Simple mask Liter Flow 9.00 Critical Value Yes Sodium Potassium Chloride Carbon Dioxide Anion Gap BUN Creatinine Estimated GFR Random Glucose Hemoglobin A1c Calcium - Imaging Impressions Ankle CT 10/14/18 00:00 CONCLUSION: 1. Acute nondisplaced oblique fracture involving the distal tibia below the old healed fracture. 2. 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 Assessment and Plan - Assessment and Plan Left acute distal tibia fracture and previous fracture to left distal tibia and fibula CT confirms fracture and splint was applied yesterday. Splint will continue to remain in place and he will be nonweightbearing on the left lower extremity. We will continue to try to treat this nonoperatively. There is a window left open over the heel for daily dressing changes which will be bacitracin Adaptic 4 x 4's and Abhinav wrap. Case management for SNF placement Follow-up x-rays in [address] Kidd or [facility]
--- NOTE | 2018-10-15 16:11 | P.PNWCN ---
Wound Care Nurse Consult Description: Received wound management consult for gluteal area from Doctor Thompson. Communicated with: ANGEL Yepez and Doctor Rivero Recommendation: 1.Please cleanse wound to R gluteal area with wound cleanser or normal saline and pat dry. 2.Cut maxorb II in single strip and pack loosely to wound bed and cover with bordered gauze. 3. Change dressing every 2 days or as needed for saturation or dislodgment. 4. Please turn patient every 2 hours and PRN for comfort and offloading of pressure from cristhian prominences. Wound/Pressure Injury - Wound Right Buttocks Wound Staging: Stage III Wound Type: Pressure Injury Is This a Chronic Wound: No Requested from Provider a Wound Care Consult: Yes (Patient seen today by inpatient wound care nurse) Length (cm): 0.5 Width (cm): 1 Depth (cm): 0.6 Wound Bed Appearance: Red Wound Bed Appearance: 100% red non-granulation tissue. Surrounding Tissue Appearance: Boutte, Shiny Surrounding Tissue Temperature: Cool Drainage Description: Serosanguinous Drainage Amount: Scant Drainage Odor: No Odor Dressing Status: Changed Cleansing Solution: Saline Wound Packing Type: Alginate (Maxorb II) Cover Dressing: bordered gauze Wound Dressing Change Date: 10/15/18 Wound Margin Description: Well defined with scar tissue - Additional Information Patient seen on for evaluation of wound management of gluteal cleft. Patient was seen on previous admission for L heel and R buttock wounds by inpatient wound care nurse. Patient was positioned to L side for wound assessment. Patient is noted with R medial buttock wound that presents with 100 % red non-granulation tissue. Periwound presents with scar tissue that is pink and shiny. Wound margins are noted with some epibole and irregular wound edges. Wound was previously staged a III pressure injury. Wound is still a stage III pressure injury. Wound was cleansed with normal saline and patted dry.Packed wound loosely with maxorb II and covered wound with 4x4 bordered gauze. L heel is noted included in dressing applied by Orthopedic surgeon and can't be removed.Patient tolerated fairly due to respiratory issues. Patient was positioned with assistance of ANGEL Koo and check writer for comfort and offloading of cristhian prominences. Full wound description, measurements and wound care recommendations are noted above.
--- NOTE | 2018-10-15 16:52 | MB ---
cc: Maryam Francisco MD DATE: 10/15/2018 REASON FOR CONSULTATION: COPD and chronic hypoxic and hypercarbic respiratory failure. HISTORY OF PRESENT ILLNESS: Mr. Escobar is an 83-year-old male who apparently had slipped out of his chair and sustained injury to his left ankle. The patient has known history of COPD and chronic respiratory failure, on home oxygen therapy. He denies shortness of breath, fever, chill, cough or expectoration. PAST MEDICAL HISTORY: 1. COPD. 2. Chronic respiratory failure, on home oxygen therapy. 3. Coronary artery disease. 4. Congestive heart failure. 5. Hypertension. 6. Liver cancer. 7. Prostate cancer. 8. BPH. SOCIAL HISTORY: Long smoking history; however, has not smoked for years. Does not drink any alcohol, does not use drugs. FAMILY HISTORY: Noncontributory. MEDICATIONS: Kindly review EMR for same. ALLERGIES: PREDNISONE AND LANSOPRAZOLE. REVIEW OF SYSTEMS: A 12-point review of systems as per HPI and past history, otherwise negative. PHYSICAL EXAMINATION: VITAL SIGNS: Temperature 98, pulse 80, respirations 20, blood pressure 150/90, oxygen saturation 96% on O2 via simple mask. HEENT: Unremarkable. Eyes without icterus. NECK: Without adenopathy, thyroid enlargement. Central trachea. CHEST: Few rhonchi at the bases. CARDIAC: PMI distant. S1, S2 audible. No murmur. No rub. ABDOMEN: Obese, lax. Bowel sounds audible. EXTREMITIES: One plus edema, more so on the left. LABORATORY DATA: Chest x-ray, 10/14/2018 with low lung volumes with bibasilar atelectasis. CT of the left ankle acute to a fracture of the distal tibia as noted. IMPRESSION: 1. Chronic obstructive pulmonary disease of severe degree. 2. Chronic respiratory failure, on oxygen therapy. 3. Acute fracture, left ankle. 4. Coronary artery disease. 5. Congestive heart failure. 6. Prostate cancer. 7. Liver cancer. PLAN: The patient will be maintained on oxygen therapy as needed, bronchodilators continued Orthopedics is following for the patient's ankle fracture. His outlook overall is poor and the family is considering hospice care at present. We will follow his care along with you and, depending on progress, proceed further. MD Genevieve Reed , 04:02 PM , 04:11 PM
--- NOTE | 2018-10-15 18:36 | P.PNIM ---
Subjective Interval history: Patient is seen lying with a simple mask on. He repeatedly takes it off. He appears somewhat confused. Nursing reports that he has called out frequently and has told him that he no longer wishes to live. Spoke with later at bedside. She tells me she has been struggling to care for the patient at home over the last year and that she is no longer able to manage him. He has also told her that he no longer wishes to be alive. Discussed end-of-life planning as well as advanced directives. Patient says he does not "want anything done". agrees that she does not wish to have rest of care including intubation or CPR. Agrees to make patient DNR. Patient also expresses wish to be DNR. Physical Exam Vital signs: Last Vital Signs Temp 98.3 F 10/15/18 16:00 Pulse 84 10/15/18 16:00 Resp 23 10/15/18 16:00 BP 129/62 10/15/18 16:00 Pulse Ox 92 L 10/15/18 16:00 Intake & Output 10/13/18 10/14/18 10/15/18 10/16/18 06:59 06:59 06:59 06:59 Intake Total 1050 / 1050 465 / 465 Output Total 350 / 350 1200 / 1200 Balance 700 / 700 -735 / -735 Weight 113.398 kg 110.2 kg Narrative: GENERAL: Well-nourished, well-developed adult male in moderate distress. SKIN: Warm and dry. HEAD: Atraumatic. Normocephalic. CARDIOVASCULAR: Regular rate and rhythm. RESPIRATORY: Labored with rhonchi and wheeze GASTROINTESTINAL: Abdomen soft, non-tender, distended. Positive bowel sounds. MUSCULOSKELETAL: Extremities without clubbing, cyanosis, or edema. No obvious deformities. NEUROLOGICAL: No obvious cranial nerve deficits. Motor grossly within normal limits. Normal speech. PSYCHIATRIC: Lethargic, confused Urinary Catheter Management Indwelling Urethral Catheter: Cath placed during this visit: yes Urethral indwelling: Yes Reason for continuing: Terminally ill/Comfort care Insertion date: 10/15/19 Insertion time: 14:30 Results Labs CBC & Chem 7: 10/15/18 03:54 10/15/18 03:54 Assessment and Plan Plan This is an 83-year-old male with history of coronary artery disease status post CABG, hypertension, COPD on home oxygen with left ankle fracture last year, managed conservatively presenting with a fall sustaining new left ankle fractures. Patient found to be needing increasing amount of oxygen and was placed on BiPAP based on ABGs. and patient both clarified that goals are primarily palliative; hospice consulted. Patient is now DNR. Hypoxemic and chronic hypercapneic respiratory failure secondary to COPD - Chest x-ray showed diminished lung volumes with bibasilar atelectasis, incentive spirometry, monitor closely, CPAP at night, bronchodilators and oxygen support. Monitor CO2 and pCO2 at 69. Neurochecks. Fall with Left ankle fracture - pelvis x-ray was unremarkable, left foot x-ray revealed lucencies in the distal tibia that appears to be related to new fractures just distal to the old fracture sites, diffuse tissue swelling and extensive arthropathy and fusion of the midfoot and hindfoot. Ultrasound of the right lower extremity negative for DVT. 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 CT scan of the C-spine showed retrolisthesis of C3 and C4, advanced multilevel degenerative changes but no fracture noted. Consult orthopedics. Hydrocodone for pain control. Coronary artery disease, congestive heart failure-restart Lasix, metoprolol Mild thrombocytopenia-baseline, monitor, unknown etiology DVT PPx: start after surgery, SCDs for now on the R leg Progress Note: Quality VTE Deep Vein Thrombosis/Pulmonary Embolism Present on Admission: No
--- NOTE | 2018-10-15 19:19 | P.DS ---
DS: Providers Date of admission: 10/14/18 05:53 Primary care physician: Ivelisse Grijalva Consults: 10/14/18 05:52 Consult to Orthopedic Surgery Routine Consulting Provider: Lan Galindo Reason for Consultation: tibial fracture Notified:: Service Spoke with:: Ashlyn Date Notified:: 10/14/18 Time Notified:: 06:04 Ordering Provider: PHILLIP 10/14/18 06:29 HUB Only Consult Order Routine Consulting Provider: Chhaya Shaver 10/15/18 11:38 Consult to Pulmonology Routine Consulting Provider: Maryam Francisco Reason for Consultation: Acute respiratory failure requiring bipap Notified:: Office Spoke with:: KARI Date Notified:: 10/15/18 Time Notified:: 11:43 Ordering Provider: JONATHAN Brief History from admission: This is an 83-year-old male with history of CAD s/ p CABG, hypertension, COPD on home oxygen, stroke, BPH with left ankle fracture in August 2017 treated conservatively presenting to the emergency department with left hip pain and right shoulder pain after sliding out of his recliner. Allegedly, the patient was found by his lying on his right side. He also reported he did hit his left ankle and has chronic pain related to his prior fracture. At baseline, the patient is not ambulatory since his left ankle fracture. He also has a chronic wound involving the left heel managed by wound care. Of note, the patient has increasing lower extremity edema on the right compared to the left, but has been urinating a lot hence he stopped taking his Lasix since 4 days ago. There is no note of focal weakness, numbness, tingling , loss of consciousness or head trauma. The patient is on oxygen at 2 L at home but on the way to the hospital, the patient desaturated hence his oxygen was increased to 4 L. No note of chest pain, shortness of breath more than baseline, palpitations, urinary symptoms, diarrhea or abdominal pain. Of note, the patient was recently in the hospital and discharged a month ago after treatment for COPD with hypercapnia/carbon dioxide retention and chronic wounds. DS: Summary This is an 83-year-old male with history of coronary artery disease status post CABG, hypertension, COPD on home oxygen with left ankle fracture last year, managed conservatively presenting with a fall sustaining new left ankle fractures. and patient both clarified that goals are primarily palliative; hospice consulted. Patient is now DNR. Hypoxemic and chronic hypercapneic respiratory failure secondary to COPD - Chest x-ray showed diminished lung volumes with bibasilar atelectasis, incentive spirometry, monitor closely, CPAP at night, bronchodilators and oxygen support. Monitor CO2 and pCO2 at 69. Neurochecks. Patient found to be needing increasing amount of oxygen and was placed on BiPAP based on ABGs 10/15. Fall with Left ankle fracture - pelvis x-ray was unremarkable, left foot x-ray revealed lucencies in the distal tibia that appears to be related to new fractures just distal to the old fracture sites, diffuse tissue swelling and extensive arthropathy and fusion of the midfoot and hindfoot. Ultrasound of the right lower extremity negative for DVT. 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 CT scan of the C-spine showed retrolisthesis of C3 and C4, advanced multilevel degenerative changes but no fracture noted. Consult orthopedics. Hydrocodone for pain control. Coronary artery disease, congestive heart failure-restart Lasix, metoprolol Mild thrombocytopenia-baseline, monitor, unknown etiology Time Spent with Patient Total time spent providing and/or coordinating discharge services: <30 min Quality: VTE Deep Vein Thrombosis/Pulmonary Embolism Present on Admission: No Exam Narrative Exam Narrative: Narrative: Not in distress, sleepy but easily arousable [place] conjunctivae, pupils equal round reactive to light Supple neck Regular rate and rhythm, no murmurs appreciated Decreased breath sounds bilaterally, no crackles or wheezing Abdomen soft, nontender, no guarding, nondistended Bilateral lower extremities weak, about 4/5, symmetrical, bilateral lower extremity edema With chronic skin changes, right more than left, about 1+ on the right.Positive tenderness on the left ankle. Positive left heel pressure ulcer, healing, no signs of any, no discharge. riented x3, no focal deficits. Results Labs on day of discharge: Labs from last 24 hours 10/15/18 10/15/18 10/15/18 11:19 03:54 03:54 WBC 5.9 RBC 3.93 L Hgb 11.6 L Hct 35.9 L MCV 91.3 MCH 29.5 MCHC 32.3 RDW 15.0 Plt Count 81 L MPV 9.5 Prelim Diff (Auto) Slide review pending Neut % (Auto) 76.7 H Lymph % (Auto) 12.7 [place] % (Auto) 7.0 Eos % (Auto) 3.4 Baso % (Auto) 0.2 Neut # (Auto) 4.5 Lymph # (Auto) 0.8 L [place]aney # (Auto) 0.4 Eos # (Auto) 0.2 Baso # (Auto) 0.0 WBC Differential . Diff Scan Auto diff confirmed Differential Comment . Puncture Site Right radial Patient Temperature 98.6 O2 Saturation 94 ABG pH 7.31 L ABG pCO2 85 H* ABG pO2 88 ABG HCO3 42 H ABG O2 Content 15.7 ABG Base Excess 14.7 H ABG Methemoglobin 0.9 Jabari Test Present Hemoglobin 11.8 L Carboxyhemoglobin 1.7 O2 Delivery Device Simple mask Liter Flow 9.00 Critical Value Yes Sodium 141 Potassium 4.1 Chloride 99 Carbon Dioxide 40.6 H Anion Gap 1 L BUN 27 H Creatinine 0.50 L Estimated GFR Greater than 89 Random Glucose 117 H Calcium 8.6 Impressions ITS Impressions Ankle CT 10/14/18 00:00 CONCLUSION: 1. Acute nondisplaced oblique fracture involving the distal tibia below the old healed fracture. 2. 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 Ankle X-Ray 10/14/18 00:00 CONCLUSION: Severe degenerative changes, no definite fracture. Fracture would be very difficult to exclude given the degree of osteopenia. Cervical Spine CT 10/14/18 03:48 CONCLUSION: 1. Minimal retrolisthesis C3 on 4. 2. Advanced multilevel degenerative changes. 3. Minimal lucencies at C2 uncertain etiology. 4. No fracture. Chest X-Ray 10/14/18 03:48 CONCLUSION: Diminished lung volumes with bibasilar atelectasis. Head CT 10/14/18 03:48 CONCLUSION: 1. 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 2. No acute intracranial abnormality. . Pelvis X-Ray 10/14/18 03:48 CONCLUSION: No acute fracture. Venous Doppler Study 10/14/18 03:48 CONCLUSION: 1. The study is negative for lower extremity deep venous thrombosis. Foot X-Ray 10/14/18 04:00 CONCLUSION: 1. Lucencies in the distal tibia appears to be related to new fracture just distal to the old fracture sites. 2. Diffuse soft tissue swelling. 3. Extensive arthropathy and fusion of the midfoot and hindfoot. Discharge Plan Discharge Disposition Patient Disposition: [facility] Hospice/Med Facility Discharge Condition Condition: Critical Discharge Order Discharge Orders: Discharge Order (Routine); Ordered 10/15/18 Ordered By: Kiya Diaz Discharge Details Anticipated Discharge Date: 10/15/18 Physicians Team ED Provider: Arabella Azul Primary Care Provider: Ivelisse Grijalva Attending Provider: Shante Rivero Other Providers: Imtiaz Little ; Lan Galindo ; Chhaya Shaver ; Maryam Francisco Rxs /Orders / Referrals /Forms Prescriptions: Continue vitamin E 1,000 unit Capsule 1,000 unit PO DAILY RF: 0 pentoxifylline 400 mg Tablet Extended Release 400 mg PO TID RF: 0 calcium carbonate [Calcium 500] 500 mg calcium (1,250 mg) Tablet 500 mg PO BID RF: 0 tamsulosin [Flomax] 0.4 mg Capsule 0.4 mg PO DAILY RF: 0 cholecalciferol (vitamin D3) [Vitamin D3] 1,000 unit Tablet 1,000 unit PO DAILY RF: 0 omeprazole 20 mg Tablet,Delayed Release (Dr/Ec) 20 mg PO BID RF: 0 furosemide [Lasix] 40 mg Tablet 40 mg PO DAILY RF: 0 potassium chloride 10 mEq Tablet Extended Release 10 meq PO BID RF: 0 aspirin [Aspir-81] 81 mg Tablet,Delayed Release (Dr/Ec) 81 mg PO DAILY RF: 0 metoprolol succinate 25 mg Tablet Extended Release 24 Hr 25 mg PO BID RF: 0 escitalopram oxalate [Lexapro] 10 mg Tablet 10 mg PO DAILY RF: 0 Referrals: Ivelisse Grijalva MD [Primary Care Provider] - See Instructions Status ED Status: Left Department
[2018-10-15 20:04] VITALS: BP 147/67; PULSE 87; RESP 17; TEMP 97.3
[2018-10-15 23:30] VITALS: O2SAT 93
== END 2018-10-15 21:30 | disposition hospice, inpatient (51) ==
LOC: NEPC 03:12 → NEDA 05:53 → N06 07:50
PROVIDERS: ADMIT Hospitalist; ATTEND Hospitalist